=== PATIENT | female | born 1955 | race Caucasian/White ===

== ENCOUNTER → 2016-09-18 | Outpatient (CLI) | payer BC ==
[~2016-09-18] MED LIST: ALD2525 PO; APIX1TAB3 PO; BUDE180I INH; CHOL1000 PO; CITA10TA8 PO; CLX20 PO; COLE625T PO; DILT-115 PO; FEBU40TA PO; FLUT0.0529 NAE; FLUT0.15 NAE; LEVA45AE; LEVO88TA3 PO; LORA-741 PO; MONT1TAB3 PO; OXGN; PRAV20TA PO; PRLSR20 PO; PRVC20 PO; RIVA1TAB4 PO; SNG10 PO; SPIR50TA PO; SYN100 PO; VERA180C2 PO; VERA240C2 PO; VERA240T20 PO; VRPSR180 PO; XPNIN INH
--- NOTE | 2016-09-18 15:00 | MAMMOGRAPHY REPORT ---
BILATERAL DIGITAL DIAGNOSTIC MAMMOGRAM TOMOSYNTHESIS WITH CAD: 09/18/2016 CLINICAL HISTORY: 60-year-old woman presents for annual bilateral mammography as well as 1 year foll ow-up of probably benign cluster microcalcifications in the 12:00 left breast. History of previous benign stereotactic biopsy in the upper outer far posterior right breast. TECHNIQUE: Bilateral CC and MLO to the digital) images, spot magnification left CC and ML views were obtained. Current study was also evaluated with a Computer Aided Detection (CAD) system. COMPARISON: Comparison is made to exams dated: 03/17/2016 mammogram, 09/08/2015 mammogram, and 11/03/19 stereotactic biopsy - [facility]. BREAST COMPOSITION: The tissue of both breasts is heterogeneously dense, which may obscure small ma sses. FINDINGS: The bregma pattern is similar to prior exams. A stable dumbbell shaped metallic biopsy ma rker is seen in the far posterior superior right breast on the MLO view. There is a coarse heteroge neous clustered microcalcifications in the 12:00 right breast, that has coarsened compared to the exam confirming benignity. A 4 mm cluster of microcalcifications in the 12:00 left breast is sta ble for one year based on spot magnification views and most likely represents an additional degenera ting fibroadenoma. However, longer stability is needed and another 12 month follow-up exam includin g spot magnification views is recommended. No other new suspicious mass, architectural distortion o r cluster of microcalcifications is seen. IMPRESSION: ACR-BI-RADS CATEGORY 3: PROBABLY BENIGN Stable bilateral mammograms, including a 4 mm cluster of microcalcifications in the 12:00 left breas t, that most likely represent a degenerating fibroadenoma. Another 12 month follow-up bilateral antonietta mogram including left spot magnification views is recommended to ensure at least 2 years of stabilit y. These results and recommendations were discussed with the patient at the time of the exam. Approximately 10% of breast cancers are not detected with mammography. A negative mammographic repor t should not delay biopsy if a clinically suggestive mass is present. Jeannie Roman M.D. ay/:09/18/2016 08:42:44 [employer] Well Log[employer] Operator: Pricila Agrawal, [facility] letter sent: Follow Up Recommended 3 BI-RADS Code: ACR-BI-RADS Category 3: Probably Benign
== END | disposition home or self-care (01) ==
LOC: C.MAMM 07:59
PROVIDERS: ATTEND Internal Medicine
DX: R92.0 Mammographic microcalcification found on diagnostic imaging of breast (principal)

== ENCOUNTER → 2016-09-29 | Outpatient (CLI) | payer BC, OTHER ==
[2016-09-29 17:47] LABS: URINE APPEARANCE CLEAR (CLEAR); URINE BILIRUBIN NEG (NEG); URINE COLOR YELLOW; URINE NITRITE NEG (NEG); URINE PH 5.5 (4.5-7.5); URINE SPECIFIC GRAVITY 1.023 (1.000-1.030); UROBILINOGEN NEG (NEG)
[2016-09-29 17:49] LABS: MANUAL MICROSCOPIC REQUIRED? NO; REVIEW REQ? NO
[2016-09-29 18:22] LABS: BLOOD UREA NITROGEN 37 mg/dl (7-18); BUN/CREATININE RATIO 33.8 (10-20); CALCIUM 9.8 mg/dl (8.5-10.1); CARBON DIOXIDE 26 mmol/L (21-32); CHLORIDE 101 mmol/L (98-107); GLUCOSE 144 mg/dl (70-99); POTASSIUM 3.4 mmol/L (3.5-5.1); SODIUM 139 mmol/L (136-145)
[2016-09-30 07:11] LABS: ESTIMATED AVERAGE GLUCOSE 126 mg/dl; HA1C FLAG Normal (Normal)
== END | disposition home or self-care (01) ==
LOC: C.LABBFT 11:20
PROVIDERS: ATTEND Internal Medicine
DX: E87.6 Hypokalemia (principal); E03.9 Hypothyroidism, unspecified; N39.0 Urinary tract infection, site not specified

== ENCOUNTER 2017-03-08 16:28 | Inpatient (IN) | payer BC ==
[~2017-03-08] VITALS: Ht 167.6 cm; Wt 90.6 kg
[2017-03-08] VITALS (28 sets, daily range): BP systolic 132–160; BP diastolic 82–102; PULSE 90–130; TEMP 37; O2SAT 94–97; Ht 167.6 cm; Wt 90.6 kg
[~2017-03-08 16:28] MED LIST changes: -APIX1TAB3 PO; -CHOL1000 PO; -CITA10TA8 PO; -DILT-115 PO; -FEBU40TA PO; -FLUT0.15 NAE; -LEVA45AE; -LEVO88TA3 PO; -MONT1TAB3 PO; -PRAV20TA PO; -RIVA1TAB4 PO; -SPIR50TA PO; -VERA180C2 PO; -VERA240C2 PO; -VERA240T20 PO; -VRPSR180 PO
--- NOTE | 2017-03-08 17:02 | EMERGENCY ROOM VISIT NOTE ---
History Report prepared by Osmel: Aleksey Myers Under the Supervision of: Dr. Nestor Infante M.D. First contact with patient: 16:47 Chief Complaint: IRREGULAR HEARTBEAT Stated Complaint: IRREGULAR HEART BEAT, SOB- PHYSICIAN REFERRED History of Present Illness The patient is a 61 year old female who presents to the Emergency Room with complaints of an intermittent irregular heartbeat that started a couple months ago. She says that she has a history of multiple UTI's, and was seen at her family practice and was told that she had an irregular heartbeat. At that time, the patient says that she was just treated for her UTI. She says that she has not been feeling well for a couple months, and has been intermittently short of breath, dizzy, nauseous, and sweaty. The patient notes that she felt like she was having another UTI, so she had an appointment today at [facility], and was diagnosed with atrial fibrillation. She says that her blood pressure and pulse were elevated in the office. She notes that she was walking outside today, and could not handle the heat, as she was drenched in sweat, and could not recover even by going inside. The patient says that she has a history of asthma, and tried using her rescue inhaler a few times in the past couple months, which only made her heart beat faster. She denies any notable pain or swelling in her extremities. 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 She takes Verapamil. Source of History: patient, spouse/significant other Onset: A couple months ago Position: other (heart ) Quality: other (irregular heartbeat) Timing: intermittent Associated Symptoms: + diaphoresis, + SOB, + nausea Note: Associated symptoms: Dizziness. Denies any notable pain or swelling in extremities. Review of Systems See HPI for pertinent positives & negatives. A total of 10 systems reviewed and were otherwise negative. Past Medical & Surgical Medical Problems: (1) Asthma, Unspecified (2) Diab Anabelle Wo Compl, Type Ii Or Unspec Type, Not Uncntrld (3) Esophageal Reflux (4) Gout Nos (5) Hyperlipidemia Nec/Nos (6) Hypertension Nos (7) Hypothyroidism Nos Surgical Problems: (1) History of delivery Old medical records were reviewed. Nurse's notes were reviewed and I agree with. Family History Diabetes mellitus FH: heart disease FH: lung disease Hypertension Kidney disease Social History Smoking Status: Former Smoker Alcohol Use: occasionally Drug Use: none Marital Status: Occupation Status: employed Current/Historical Medications Scheduled Budesonide (Inhalation) (Pulmicort Flexhaler), 2 PUFFS INH BID Cholecalciferol (Vitamin D3), 1,000 UNITS PO BID Citalopram Hydrobromide (Celexa), 5 MG PO HS Colesevelam (Welchol), 1,875 MG PO BID Febuxostat (Uloric), 40 MG PO HS Fluticasone Propionate (Nasal) (Flonase Allergy Relief), 2 SPRAYS SUE BID Hctz/Spironolactone 25MG/25MG (Aldactazide 25MG/25MG), 1 TAB PO BID Home O2 Therapy (Oxygen), 2 LITERS NA HS Levothyroxine Sodium (Levothyroxine Sodium), 88 MCG PO DAILY Montelukast Sodium (Singulair), 10 MG PO HS Omeprazole (Prilosec), 20 MG PO QAM Pravastatin (Pravachol ), 10 MG PO HS Verapamil Hcl (Verapamil Hcl Er), 180 MG PO HS Scheduled PRN Lorazepam (Ativan), 0.5 MG PO HS PRN for anxiety Allergies Coded Allergies: Atenolol (Verified Allergy, Unknown, HAS ASTHMA, 03/08/17) Iodinated Diagnostic Agents (Verified Allergy, Unknown, RASH, HIVES, ) Metoprolol (Verified Allergy, Unknown, HAS ASTHMA, 03/08/17) Sulfa Antibiotics (Verified Allergy, Unknown, ., 03/08/17) Uncoded Allergies: MOST ANITBOTICS (Adverse Reaction, Unknown, UNKNOWN, 01/02/14) Physical Exam Vital Signs Date Time Temp Pulse Resp B/P (MAP) Pulse Ox O2 Delivery O2 Flow Rate FiO2 03/08/17 20:38 104 21 03/08/17 20:29 132/98 03/08/17 20:08 98 19 03/08/17 20:03 118 22 132/98 03/08/17 19:33 117 27 03/08/17 19:03 120 13 03/08/17 18:59 154/102 03/08/17 18:59 114 18 154/102 97 Room Air 03/08/17 18:33 120 22 03/08/17 18:03 129 15 03/08/17 17:28 120 19 03/08/17 17:03 96 Room Air 03/08/17 16:58 117 23 03/08/17 16:49 121 03/08/17 16:31 36.6 134 18 159/101 95 Room Air Physical Exam General: Well developed well nourished non ill appearing older female who is mildly anxious and intermittently teary eyed, breathing comfortably on room air. Normal speech HEENT: Normal cephalic atraumatic. Pupils are equal round and reactive to light. Extraocular movements are intact. Oropharynx is pink with moist mucous membranes. No swelling of the mouth lips or tongue. Neck: Supple with a midline trachea. No meningeal signs or stiffness, no JVD or bruits. No Stridor. Chest: Clear to auscultation bilaterally. No wheezes or rhonchi. No increased work of breathing. Heart: Irregularly irregular, with atrial fibrillation on the monitor. Abdomen: Soft nontender, nondistended without rebound guarding or rigidity. Extremities: No cyanosis clubbing or edema. No calf tenderness or assymetry Spine/Back. Non tender to palpation. No CVA tenderness Skin: Good turgor without rashes. Neurologic exam: Cranial nerves two through 12 are intact. Motor and sensation are intact and symmetrical throughout. Medical Decision & Procedures ER Provider Diagnostic Interpretation: X-ray results as stated below per interpretation by me and the radiologist: SINGLE VIEW CHEST CLINICAL HISTORY: Atypical chest pain. FINDINGS: An AP, portable, upright chest radiograph is compared to study dated 01/02/2014 and correlated with chest CT dated 01/03/2014. The examination is degraded by portable technique and patient rotation. The heart is top normal for projection. There is mild atherosclerotic calcification of the thoracic aorta. The lungs and pleural spaces are clear. No pneumothorax is seen. The skeletal structures are osteopenic. The bony thorax is grossly intact. IMPRESSION: No acute cardiopulmonary abnormality. Electronically signed by: Roger Rogers M.D. 03/08/2017 6:18 PM Dictated Date/Time: 03/08/2017 6:00 PM Laboratory Results 03/08/17 18:00 Red Blood Count 5.26, Mean Corpuscular Volume 89.0, Mean Corpuscular Hemoglobin 29.8, Mean Corpuscular Hemoglobin Concent 33.5, Mean Platelet Volume 11.3, Neutrophils (%) (Auto) 64.8, Lymphocytes (%) (Auto) 23.8, Monocytes (%) (Auto) 8.0, Eosinophils (%) (Auto) 2.5, Basophils (%) (Auto) 0.6, Neutrophils # (Auto) 5.81, Lymphocytes # (Auto) 2.13, Monocytes # (Auto) 0.72, Eosinophils # (Auto) 0.22, Basophils # (Auto) 0.05 03/08/17 18:00 Test 03/08/17 18:00 03/08/17 18:05 White Blood Count 8.96 K/uL (4.8-10.8) Red Blood Count 5.26 M/uL (4.2-5.4) Hemoglobin 15.7 g/dL (12.0-16.0) Hematocrit 46.8 % (37-47) Mean Corpuscular Volume 89.0 fL (80-100) Mean Corpuscular Hemoglobin 29.8 pg (25-34) Mean Corpuscular Hemoglobin Concent 33.5 g/dl (32-36) Platelet Count 279 K/uL (130-400) Mean Platelet Volume 11.3 fL (7.4-10.4) Neutrophils (%) (Auto) 64.8 % Lymphocytes (%) (Auto) 23.8 % Monocytes (%) (Auto) 8.0 % Eosinophils (%) (Auto) 2.5 % Basophils (%) (Auto) 0.6 % Neutrophils # (Auto) 5.81 K/uL (1.4-6.5) Lymphocytes # (Auto) 2.13 K/uL (1.2-3.4) Monocytes # (Auto) 0.72 K/uL (0.11-0.59) Eosinophils # (Auto) 0.22 K/uL (0-0.5) Basophils # (Auto) 0.05 K/uL (0-0.2) RDW Standard Deviation 42.6 fL (36.4-46.3) RDW Coefficient of Variation 13.1 % (11.5-14.5) Immature Granulocyte % (Auto) 0.3 % Immature Granulocyte # (Auto) 0.03 K/uL (0.00-0.02) Prothrombin Time 10.7 SECONDS (9.0-12.0) Prothromb Time International Ratio 1.0 (0.9-1.1) Activated Partial Thromboplast Time 25.8 SECONDS (21.0-31.0) Partial Thromboplastin Ratio 1.0 Anion Gap 9.0 mmol/L (3-11) Est Creatinine Clear Calc Drug Dose 60.8 ml/min Estimated GFR () 62.8 Estimated GFR (Non- 54.1 BUN/Creatinine Ratio 22.2 (10-20) Calcium Level 10.0 mg/dl (8.5-10.1) Magnesium Level 1.8 mg/dl (1.8-2.4) Total Bilirubin 0.4 mg/dl (0.2-1) Direct Bilirubin < 0.1 mg/dl (0-0.2) Aspartate Amino Transf (AST/SGOT) 16 U/L (15-37) Alanine Aminotransferase (ALT/SGPT) 34 U/L (12-78) Alkaline Phosphatase 76 U/L (45-117) Total Creatine Kinase 42 U/L (26-192) Creatine Kinase MB 0.6 ng/ml (0.5-3.6) Creatine Kinase MB Ratio 1.4 (0-3.0) Total Protein 7.1 gm/dl (6.4-8.2) Albumin 3.7 gm/dl (3.4-5.0) Lipase 82 U/L (73-393) Thyroid Stimulating Hormone (TSH) 2.760 uIu/ml (0.300-4.500) Hepatitis C Antibody Screen NEG (NEG) Bedside D-Dimer 207 ng/mlFEU (0-450) Bedside Troponin I < 0.030 ng/ml (0-0.045) QU-Frs-U-Type Natriuretic Peptide 281 pg/ml (0-900) Laboratory studies as stated above per my review. Medications Administered Medications (Trade) Dose Ordered Sig/Keo Route Start Time Stop Time Status Last Admin Dose Admin Sodium Chloride 1,000 ml @ 999 mls/hr Q1H1M STAT IV 03/08/17 17:42 03/08/17 18:42 DC 03/08/17 18:08 999 MLS/HR Sodium Chloride 1,000 ml @ 150 mls/hr Q6H40M ONCE IV 03/08/17 17:42 03/08/17 21:55 DC 03/08/17 18:08 150 MLS/HR Magnesium Sulfate (Magnesium Sulfate) 1 gm STK-MED ONCE .ROUTE 03/08/17 19:30 03/08/17 19:31 DC 03/08/17 19:36 1 GM Potassium Chloride (Klor-Con M10) 40 meq STK-MED ONCE .ROUTE 03/08/17 19:30 03/08/17 19:31 DC 03/08/17 19:35 40 MEQ ECG Indication: other (irregular heartbeat) Rate (beats per minute): 120 Rhythm: atrial fibrillation Findings: PVC, other (nonspecific T wave abnormalities, poor baseline) Comparison ECG Date: compared to Jan 03 2014, atrial fibrillation has replaced sinus bradycardia ED Course 1649: Past medical records reviewed. The patient was evaluated in room A3, and a complete history and physical examination were performed. 1741: Ordered NSS 1000 ml @ 150 mls/hr IV, NSS 1000 ml @ 999 mls/hr IV. 1819: I reevaluated the patient and she is resting comfortably. Her heart rate is 100. 1902: I reevaluated the patient and she is resting. The patient verbally expressed understanding and agreement with the treatment plan. The patient will be evaluated for further treatment. 1904: I discussed the patient with Dr. Tolbert - [facility] hospitalist - he will evaluate the patient for further treatment. Medical Decision Differentials include, but are not limited to; atrial fibrillation, thyroid disease, CHF, cardiac disease, electrolyte or metabolic abnormality. Medication Reconciliation: I attest that I have personally reviewed the patient' s current medication list. Blood pressure Screening: Patient was found to have an elevated blood pressure and was referred to their primary doctor for recheck and further treatment. Room A3 she was sent over from her doctor's office after being found have new- onset A. fib. She's not felt well for quite some time several months now. She' s had a fast heart rate intermittently irregular irregular. I am unsure how long that she has actually been in A. fib. Her heart rate was rapid but went with it rest it would be about 100. She does have multiple medication sensitivities and in particular cannot take beta blockers due to her asthma, she 's had significant problems with this in the past. She also already on verapamil. She's had no chest pain. She's felt tired at present. IV access established and she was with hydrated with IV normal saline. EKG, chest x-ray, and multiple blood tests was obtained. EKG shows atrial fibrillation with a mildly rapid rate and no definite ischemic changes. Chest x-ray does not suggest congestive heart failure, pneumonia, or pneumothorax. She has no acute electrolyte or metabolic abnormalities. Thyroid was within normal limits. She does need to be admitted to have further treatment and evaluation of her new onset A. fib she may need further rate control. I did consult the [facility] hospitalist to see her in the ER. Consults Time Called: 1899 Consulting Physician: Dr. Didi COATS hospitalist Returned Call: 1904 (in person) I discussed the patient with Dr. Didi COATS hospitalist - he will evaluate the patient for further treatment. Impression Primary Impression: New onset a-fib Additional Impression: Atrial fibrillation with RVR Scribe Attestation The scribe's documentation has been prepared under my direction and personally reviewed by me in its entirety. I confirm that the note above accurately reflects all work, treatment, procedures, and medical decision making performed by me. Departure Information Dispostion Being Evaluated By Hospitalist Referrals Jim Jackman M.D. (PCP) Patient Instructions My [facility] Health Problem Qualifiers
[2017-03-08] MEDS ORDERED: CITA10TA8 PO (17:06)
[2017-03-08] MEDS ORDERED: FLUT0.15 NAE (17:08)
[2017-03-08] MEDS ORDERED: SPIR50TA PO (17:09)
[2017-03-08] MEDS ORDERED: LEVO88TA3 PO (17:10)
[2017-03-08] MEDS ORDERED: MONT1TAB3 PO (17:12)
[2017-03-08] MEDS ORDERED: PRAV20TA PO (17:13)
[2017-03-08] MEDS ORDERED: FEBU40TA PO (17:14)
[2017-03-08] MEDS ORDERED: CHOL1000 PO (17:15)
[2017-03-08] MEDS ORDERED: VERA180C2 PO (17:17)
[2017-03-08] MEDS ORDERED: SODIUM CHLORIDE 0.9% 1000ML 1,000 ML IV STA (17:42)
[2017-03-08] MEDS ORDERED: SODIUM CHLORIDE 0.9% 1000ML 1,000 ML IV ONE (17:42)
--- NOTE | 2017-03-08 18:19 | DIAGNOSTIC IMAGING REPORT ---
SINGLE VIEW CHEST CLINICAL HISTORY: Atypical chest pain. FINDINGS: An AP, portable, upright chest radiograph is compared to study dated 01/02/2014 and correlated with chest CT dated 01/03/2014. The examination is degraded by portable technique and patient rotation. The heart is top normal for projection. There is mild atherosclerotic calcification of the thoracic aorta. The lungs and pleural spaces are clear. No pneumothorax is seen. The skeletal structures are osteopenic. The bony thorax is grossly intact. IMPRESSION: No acute cardiopulmonary abnormality. Electronically signed by: Roger Rogers M.D. 03/08/2017 6:18 PM Dictated Date/Time: 03/08/2017 6:00 PM
[2017-03-08 18:25] LABS: BASO % 0.6 %; BASO ABS # 0.05 K/uL (0-0.2); COMPLETE YES; EOS % 2.5 %; HEMATOCRIT 46.8 % (37-47); IG% 0.3 %; LYMPH % 23.8 %; LYMPH ABS # 2.13 K/uL (1.2-3.4); MEAN CORPUSCULAR HEMOGLOBIN 29.8 pg (25-34); MEAN CORPUSCULAR HGB CONC 33.5 g/dl (32-36); MEAN PLATELET VOLUME 11.3 fL (7.4-10.4); NEUT % 64.8 %; PLATELET COUNT 279 K/uL (130-400); RED BLOOD COUNT 5.26 M/uL (4.2-5.4); WHITE BLOOD COUNT 8.96 K/uL (4.8-10.8)
[2017-03-08 18:27] LABS: POINT OF CARE PRO-BNP 281 pg/ml (0-900); POINT OF CARE TROPONIN I < 0.030 ng/ml (0-0.045)
[2017-03-08 18:44] LABS: PROTHROMBIN TIME (PATIENT) 10.7 SECONDS (9.0-12.0)
[2017-03-08 18:45] LABS: BLOOD UREA NITROGEN 24 mg/dl (7-18); BUN/CREATININE RATIO 22.2 (10-20); CARBON DIOXIDE 28 mmol/L (21-32); CHLORIDE 101 mmol/L (98-107); GLUCOSE 94 mg/dl (70-99); MAGNESIUM 1.8 mg/dl (1.8-2.4); POTASSIUM 3.4 mmol/L (3.5-5.1); SODIUM 138 mmol/L (136-145)
[2017-03-08 18:54] LABS: ALKALINE PHOSPHATASE 76 U/L (45-117); ALT/SGPT 34 U/L (12-78); AST/SGOT 16 U/L (15-37); CKMB/CK RATIO 1.4 (0-3.0)
[2017-03-08] MEDS ORDERED: POTASSIUM CHLORIDE 10 MEQ TABCR PO STA (19:02)
[2017-03-08] MEDS ORDERED: MAGNESIUM SULFATE 1GM / D5W 1 GM in PREMIXED IN D5W 100 ML IV STA (19:02)
[2017-03-08] MEDS ORDERED: POTASSIUM CHLORIDE 10 MEQ TABCR ONE (19:30)
[2017-03-08] MEDS ORDERED: MAGNESIUM SULFATE 1GM / D5W 1 GM BAG ONE (19:30)
[2017-03-08] MEDS ORDERED: ACETAMINOPHEN 325 MG TAB PO PRN (20:45)
[2017-03-08] MEDS ORDERED: POLYETHYLENE (MIRALAX) 17 GM PACK PO PRN (20:45)
[2017-03-08] MEDS ORDERED: ONDANSETRON INJ 2 MG/ML 2 ML VIAL IV PRN (20:45)
[2017-03-08] MEDS ORDERED: LORAZEPAM 0.5 MG TAB PO PRN (20:45)
[2017-03-08] MEDS ORDERED: ALUMINUM/MAGNESIUM/SIMETH (MAALOX MAX) 30 ML UDC PO PRN (20:45)
--- NOTE | 2017-03-08 20:47 | History and Physical ---
History & Physical Date & Time of Service: Mar 08, 2017 at 20:47 Chief Complaint: Irregular Heart Beat, Sob- Physician Referred Primary Care Physician: Jim Jackman M.D. History of Present Illness 61-year-old female with past medical history of asthma, diabetes, hypertension, hyperlipidemia, hypothyroidism, Presented to the ER with complaints of palpitations. The patient has a urinary symptoms and was seen at the PCPs office and found to have elevated heart rate and blood pressure. She was also found to have an irregular heartbeat. The patient stated that she had been having a sensation of irregular heartbeat for a few months. Denies any chest pain, shortness of breath but had episodes of lightheadedness or dizziness. Denies any pain or swelling in her lower extremities. She has a history of asthma and hypertension and is currently on verapamil and Aldactazide Past Medical/Surgical History Surgical Problems: (1) History of delivery Status: Resolved Family History Diabetes mellitus FH: heart disease FH: lung disease Hypertension Kidney disease Social History Smoking Status: Former Smoker Drug Use: none Marital Status: Housing status: lives with family Occupational Status: employed Immunizations History of Influenza Vaccine: Yes History of Tetanus Vaccine?: Yes Tetanus Immunization Date: Oct 30, 2007 History of Pneumococcal: Yes History of Hepatitis B Vaccine: No Multi-Drug Resistant Organisms History of MDRO: No Allergies Coded Allergies: Atenolol (Verified Allergy, Unknown, HAS ASTHMA, 03/08/17) Iodinated Diagnostic Agents (Verified Allergy, Unknown, RASH, HIVES, ) Metoprolol (Verified Allergy, Unknown, HAS ASTHMA, 03/08/17) Sulfa Antibiotics (Verified Allergy, Unknown, ., 03/08/17) Uncoded Allergies: MOST ANITBOTICS (Adverse Reaction, Unknown, UNKNOWN, 01/02/14) Home Medications Scheduled Budesonide (Inhalation) (Pulmicort Flexhaler), 2 PUFFS INH BID Cholecalciferol (Vitamin D3), 1,000 UNITS PO BID Citalopram Hydrobromide (Celexa), 5 MG PO HS Colesevelam (Welchol), 1,875 MG PO BID Febuxostat (Uloric), 40 MG PO HS Fluticasone Propionate (Nasal) (Flonase Allergy Relief), 2 SPRAYS SUE BID Hctz/Spironolactone 25MG/25MG (Aldactazide 25MG/25MG), 1 TAB PO BID Home O2 Therapy (Oxygen), 2 LITERS NA HS Levothyroxine Sodium (Levothyroxine Sodium), 88 MCG PO DAILY Montelukast Sodium (Singulair), 10 MG PO HS Omeprazole (Prilosec), 20 MG PO QAM Pravastatin (Pravachol ), 10 MG PO HS Rivaroxaban (Xarelto), 20 MG PO DAILY Verapamil Sust Rel (Calan Sr Ext Rel), 240 MG PO OD Scheduled PRN Lorazepam (Ativan), 0.5 MG PO HS PRN for anxiety Review of Systems Constitutional: No fever, No chills Eyes: No worsening of vision ENT: No hearing loss Respiratory: No cough, No sputum, No shortness of breath Cardiovascular: + palpitations, + problem reported (lightheadedness), No chest pain Abdomen: No pain, No nausea, No vomiting Musculoskeletal: No joint pain Genitourinary - Female: + dysuria Neurologic: No memory loss, No paralysis Psychiatric: No depression symptoms Endocrine: No fatigue Hematologic / Lymphatic: No abnormal bleeding/bruising Integumentary: No rash Physical Exam Vital Signs Date Time Temp Pulse Resp B/P (MAP) Pulse Ox O2 Delivery O2 Flow Rate FiO2 03/08/17 20:03 118 22 132/98 03/08/17 19:33 117 27 03/08/17 19:03 120 13 03/08/17 18:59 154/102 03/08/17 18:59 114 18 154/102 97 Room Air 03/08/17 18:33 120 22 03/08/17 18:03 129 15 03/08/17 17:28 120 19 03/08/17 17:03 96 Room Air 03/08/17 16:58 117 23 03/08/17 16:49 121 03/08/17 16:31 36.6 134 18 159/101 95 Room Air General Appearance: WD/WN, no apparent distress Eyes: normal inspection ENT: hearing grossly normal Neck: supple Respiratory/Chest: chest non-tender, lungs clear, normal breath sounds, no respiratory distress Cardiovascular: + irregularly irregular Abdomen/GI: normal bowel sounds, non tender, soft Extremities/Musculoskelatal: no calf tenderness, no pedal edema Neurologic/Psych: alert, normal mood/affect, oriented x 3 Diagnostics Laboratory Results Results Past 24 Hours Test 03/08/17 17:42 03/08/17 18:00 03/08/17 18:05 Range/Units Creatine Kinase MB Ratio 1.4 0-3.0 White Blood Count 8.96 4.8-10.8 K/uL Red Blood Count 5.26 4.2-5.4 M/uL Hemoglobin 15.7 12.0-16.0 g/dL Hematocrit 46.8 37-47 % Mean Corpuscular Volume 89.0 80-100 fL Mean Corpuscular Hemoglobin 29.8 25-34 pg Mean Corpuscular Hemoglobin Concent 33.5 32-36 g/dl Platelet Count 279 130-400 K/uL Mean Platelet Volume 11.3 7.4-10.4 fL Neutrophils (%) (Auto) 64.8 % Lymphocytes (%) (Auto) 23.8 % Monocytes (%) (Auto) 8.0 % Eosinophils (%) (Auto) 2.5 % Basophils (%) (Auto) 0.6 % Neutrophils # (Auto) 5.81 1.4-6.5 K/uL Lymphocytes # (Auto) 2.13 1.2-3.4 K/uL Monocytes # (Auto) 0.72 0.11-0.59 K/uL Eosinophils # (Auto) 0.22 0-0.5 K/uL Basophils # (Auto) 0.05 0-0.2 K/uL RDW Standard Deviation 42.6 36.4-46.3 fL RDW Coefficient of Variation 13.1 11.5-14.5 % Immature Granulocyte % (Auto) 0.3 % Immature Granulocyte # (Auto) 0.03 0.00-0.02 K/uL Prothrombin Time 10.7 9.0-12.0 SECONDS Prothromb Time International Ratio 1.0 0.9-1.1 Activated Partial Thromboplast Time 25.8 21.0-31.0 SECONDS Partial Thromboplastin Ratio 1.0 Sodium Level 138 136-145 mmol/L Potassium Level 3.4 3.5-5.1 mmol/L Chloride Level 101 98-107 mmol/L Carbon Dioxide Level 28 21-32 mmol/L Anion Gap 9.0 3-11 mmol/L Blood Urea Nitrogen 24 7-18 mg/dl Creatinine 1.10 0.60-1.20 mg/dl Est Creatinine Clear Calc Drug Dose 60.8 ml/min Estimated GFR () 62.8 Estimated GFR (Non- 54.1 BUN/Creatinine Ratio 22.2 10-20 Random Glucose 94 70-99 mg/dl Calcium Level 10.0 8.5-10.1 mg/dl Magnesium Level 1.8 1.8-2.4 mg/dl Total Bilirubin 0.4 0.2-1 mg/dl Direct Bilirubin < 0.1 0-0.2 mg/dl Aspartate Amino Transf (AST/SGOT) 16 15-37 U/L Alanine Aminotransferase (ALT/SGPT) 34 12-78 U/L Alkaline Phosphatase 76 45-117 U/L Total Creatine Kinase 42 26-192 U/L Creatine Kinase MB 0.6 0.5-3.6 ng/ml Total Protein 7.1 6.4-8.2 gm/dl Albumin 3.7 3.4-5.0 gm/dl Lipase 82 73-393 U/L Thyroid Stimulating Hormone (TSH) 2.760 0.300-4.500 uIu/ml Bedside D-Dimer 207 0-450 ng/mlFEU Bedside Troponin I < 0.030 0-0.045 ng/ml BY-Noo-Z-Type Natriuretic Peptide 281 0-900 pg/ml Diagnostic Radiology SINGLE VIEW CHEST CLINICAL HISTORY: Atypical chest pain. FINDINGS: An AP, portable, upright chest radiograph is compared to study dated 01/02/2014 and correlated with chest CT dated 01/03/2014. The examination is degraded by portable technique and patient rotation. The heart is top normal for projection. There is mild atherosclerotic calcification of the thoracic aorta. The lungs and pleural spaces are clear. No pneumothorax is seen. The skeletal structures are osteopenic. The bony thorax is grossly intact. IMPRESSION: No acute cardiopulmonary abnormality. Electronically signed by: Roger Rogers M.D. 03/08/2017 6:18 PM Dictated Date/Time: 03/08/2017 6:00 PM EKG Atrial fibrillation with rapid ventricular response with premature ventricular or aberrantly conducted complexes Cannot rule out Anterior infarct , age undetermined Nonspecific T wave abnormality Prolonged QT Abnormal ECG When compared with ECG of 03-JAN-2014 07:40, Atrial fibrillation has replaced Sinus rhythm Premature ventricular complexes are now Present Impression Assessment and Plan 61-year-old female with past medical history of asthma, diabetes, hypertension, hyperlipidemia, hypothyroidism, Presented to the ER with complaints of palpitations. Atrial Fibrillation: - EKG: Atrial fibrillation with rapid ventricular response with premature ventricular or aberrantly conducted complexes Cannot rule out Anterior infarct , age undetermined Nonspecific T wave abnormality - TSH within normal range - K at 3.4, repleted - Monitor electrolytes - Patient cannot tolerate metoprolol - Increased dosage of verapamil to 180 mg twice a day from 180 mg daily - [id number] vasc score of 3 , started on Lovenox for anticoagulation for now. Will need discussion with primary team/cardiology regarding oral anticoagulation Asthma: Stable - Continue Pulmicort HTN - Continue verapamil, Aldactazide Diabetes: - Diet controlled Hypothyroidism: - Continue Synthroid Gout: -Continue to febuxostat Full code DVT prophylaxis: Lovenox Disposition: Admitted to telemetry Attending Addendum: I physically seen and examined this patient, have supervised the medical residents activities, and agree with the H&P as noted above with the following exceptions: NONE The patient is awake, well-developed and adequately nourished, alert and oriented 3, normocephalic and atraumatic, lying in bed and in no acute distress. HEENT--PERRL, EOMI, mucous membranes and oropharynx normal. Neck--supple, no JVD or bruits, thyroid normal, trachea midline, no adenopathy. Heart--no irregularly irregular and tachycardic, no murmurs, rubs or gallops. Lungs--clear bilaterally, but diminished throughout, no respiratory distress, no accessory muscle use. Abdomen--normal bowel sounds and soft, nontender and nondistended, no hernias or masses, no organomegaly. Extremities--no cyanosis, clubbing or edema. There are good distal pulses b/l. Dermatologic--normal skin turgor, normal color, warm and dry, no abnormal lymph nodes, no rash. Neurologic--cranial nerves II through XII grossly intact. Rheumatologic--normal range of motion, nontender, muscles and joints. Psychiatric--normal affect. Assessment and Plan: 1. Atrial fibrillation with rapid ventricular response--The patient will be admitted to telemetry for serial cardiac enzymes, cardiac rhythm monitoring and a 2-D echocardiogram with Dopplers. Hypokalemia with potassium at 3.4, replete with 40 mEq orally now, and add a magnesium level to current ED labs. Follow serial BMP and magnesium levels. Hypokalemia is likely secondary to Aldactazide use. Presently on verapamil SR 180 mg by mouth every morning, well tolerated, and intolerant of beta blockers, will therefore increase Verapamil SR 180 mg by mouth twice a day. [id number] score of 3, and therefore being started on Lovenox 1 mg /kilogram subcutaneous every 12 hours for therapeutic anticoagulation. Consult cardiology. Level of Care Telemetry Resuscitation Status FULL RESUSCITATION VTE Prophylaxis VTE Risk Assessment Done? Y/N: Yes Risk Level: Moderate Given or contraindicated: Enoxaparin (Lovenox)SQ Resident Tracking Resident Involvement: Resident Care Provided Care Provided: Adult Hospital Medicine
[2017-03-08] MEDS ORDERED: FEBUXOSTAT 40 MG TAB PO SCH (21:00)
[2017-03-08] MEDS ORDERED: MONTELUKAST SOD 10 MG TAB PO SCH (21:00)
[2017-03-08] MEDS ORDERED: CITALOPRAM 20 MG TAB PO SCH (21:00)
[2017-03-08] MEDS ORDERED: PRAVASTATIN SOD 20 MG TAB PO SCH (21:00)
[2017-03-09] VITALS (17 sets, daily range): BP systolic 99–120; BP diastolic 61–83; PULSE 83–106; TEMP 36.7–37; O2SAT 93–96
[2017-03-09] MEDS ORDERED: LEVOTHYROXINE 88 MCG TAB PO SCH (06:00)
[2017-03-09 06:49] LABS: BASO % 0.4 %; BASO ABS # 0.03 K/uL (0-0.2); COMPLETE YES; EOS % 3.2 %; HEMATOCRIT 43.2 % (37-47); IG% 0.3 %; LYMPH % 29.6 %; LYMPH ABS # 2.21 K/uL (1.2-3.4); MEAN CELL VOLUME 88.9 fL (80-100); MEAN CORPUSCULAR HEMOGLOBIN 29.2 pg (25-34); MEAN CORPUSCULAR HGB CONC 32.9 g/dl (32-36); MEAN PLATELET VOLUME 10.8 fL (7.4-10.4); MONO % 8.4 %; NEUT % 58.1 %; PLATELET COUNT 257 K/uL (130-400); RED BLOOD COUNT 4.86 M/uL (4.2-5.4); WHITE BLOOD COUNT 7.47 K/uL (4.8-10.8)
[2017-03-09 06:58] LABS: INR 1.1 (0.9-1.1); PARTIAL THROMBOPLASTIN RATIO 1.2; PROTHROMBIN TIME (PATIENT) 11.3 SECONDS (9.0-12.0)
[2017-03-09] MEDS: BUDESONIDE 90 MCG INH INH SCH ×2 (07:12→08:12)
[2017-03-09] MEDS: FLUTICASONE PROPIONATE NA SPR 16 GM BTL NAE SCH ×2 (07:12→08:12)
[2017-03-09] MEDS: SPIRONOLACTONE/HCTZ 25-25 PO SCH ×2 (07:12→08:13)
[2017-03-09] MEDS: VERAPAMIL HCL 180 MG TABCR PO SCH ×2 (07:12→08:13)
[2017-03-09] MEDS: COLESEVELAM 625 MG TAB PO SCH ×2 (07:13→08:13)
[2017-03-09] MEDS: NSS + 20MEQ KCL 1000ML 1,000 ML IV SCH ×2 (07:13→08:11)
[2017-03-09 07:17] LABS: BUN/CREATININE RATIO 18.7 (10-20); CREATININE 0.91 mg/dl (0.60-1.20); MAGNESIUM 1.9 mg/dl (1.8-2.4); POTASSIUM 3.8 mmol/L (3.5-5.1)
[2017-03-09] MEDS ORDERED: ACETAMINOPHEN 500 MG TAB PO STA (08:53)
[2017-03-09] MEDS ORDERED: ENOXAPARIN 1.5 MG/KG SQ SCH (09:00)
[2017-03-09] MEDS ORDERED: ENOXAPARIN 150 MG/1ML SYR SQ SCH (09:00)
[2017-03-09] MEDS ORDERED: PANTOprazole SOD 40 MG TAB PO SCH (09:00)
--- NOTE | 2017-03-09 10:40 | ECHOCARDIOGRAM REPORT ---
*NOTICE TO RECEIVING DEMOCRAT AGENCY This information is strictly Confidential and protected under [place] law. [place] law prohibits you from making any further disclosure of this information unless further disclosure is expressly permitted by the written consent of the person to whom it pertains or is authorized by law. A general authorization for the release of medical or other information is not sufficient for this purpose. Hospital accepts no responsibility if the information is made available to any other person, INCLUDING THE PATIENT. Interpretation Summary * Name: JOHNSON CISSE Study Date: 03/09/2017 06:51 AM BP: 101/65 mmHg * Patient Location: [facility] HR: 98 * : 1955 (M/d/yyyy) Gender: Female Height: 66 in * Age: 61 yrs Ethnicity: CA Weight: 199 lb * Ordering Physician: Divina Lemons * Referring Physician: Nena Foster * Performed By: Sanford Walker RCS * * Reason For Study: A-Fib * BSA: 2.0 m2 * -- Conclusions -- * 1. Borderline dilated LV, with borderline concentric LVH. * 2. Normal LV systolic function. LVEF 50-55%. No regional wall motion abnormalities. * 3. Normal RV size and function. * 4. Mild left atrial enlargement. * 5. No significant valvular pathology. * 6. Compared with prior study on 01/03/2014: Atrial fibrillation is new. Procedure Details * Left Ventricle The left ventricle is borderline dilated. There is borderline concentric left ventricular hypertrophy. Ejection Fraction = 50-55%. No regional wall motion abnormalities noted. * Right Ventricle The right ventricle is grossly normal size. The right ventricular systolic function is normal as assessed by tricuspid annular plane systolic excursion (TAPSE) (normal >1.5 cm). * Atria The left atrium is mildly dilated. Right atrial size is normal. No ASD detected; PFO is not assessed. * Mitral Valve The mitral valve is grossly normal. There is no mitral valve stenosis. There is trace mitral regurgitation. * Tricuspid Valve The tricuspid valve is not well visualized. There is trace tricuspid regurgitation. * Aortic Valve The aortic valve opens well. The aortic valve is trileaflet. No hemodynamically significant valvular aortic stenosis. There is no significant aortic regurgitation. * Pulmonic Valve The pulmonary valve is inadequately visualized, but the Doppler data is adequate for interpretation. There is no pulmonic valvular stenosis. There is no pulmonic valvular regurgitation. * Great Vessels The aortic root and proximal ascending aorta are normal sized. No Doppler or imaging evidence of an aortic coarctation. * Pericardium/Pleural There is no pericardial effusion. * * MMode 2D Measurements and Calculations * IVSd 1.1 cm * * LVIDd 5.5 cm * LVIDs 3.9 cm * LVPWd 1.1 cm * * IVS/LVPW 0.94 * FS 30.4 % * EDV(Teich) 149.8 ml * ESV(Teich) 64.0 ml * EF(Teich) 57.3 % * * EDV(cubed) 169.9 ml * ESV(cubed) 57.1 ml * EF(cubed) 66.4 % * * LV mass(C)d 242.7 grams * LV mass(C)dI 121.6 grams/m\S\2 * * SV(Teich) 85.8 ml * SI(Teich) 43.0 ml/m\S\2 * SV(cubed) 112.7 ml * SI(cubed) 56.5 ml/m\S\2 * * Ao root diam 3.3 cm * Ao root area 8.8 cm\S\2 * * LVOT diam 2.3 cm * LVOT area 4.3 cm\S\2 * * LVAd ap4 25.1 cm\S\2 * LVLd ap4 7.5 cm * EDV(MOD-sp4) 68.9 ml * EDV(sp4-el) 71.2 ml * LVAs ap4 16.2 cm\S\2 * LVLs ap4 6.3 cm * ESV(MOD-sp4) 36.6 ml * ESV(sp4-el) 35.7 ml * EF(MOD-sp4) 46.8 % * EF(sp4-el) 49.8 % * * LVAd ap2 23.5 cm\S\2 * LVLd ap2 7.3 cm * EDV(MOD-sp2) 64.0 ml * EDV(sp2-el) 64.2 ml * LVAs ap2 16.3 cm\S\2 * LVLs ap2 6.9 cm * ESV(MOD-sp2) 32.8 ml * ESV(sp2-el) 32.5 ml * EF(MOD-sp2) 48.8 % * EF(sp2-el) 49.4 % * * LVLd %diff -3.01 % * EDV(MOD-bp) 68.8 ml * LVLs %diff 9.9 % * ESV(MOD-bp) 36.0 ml * EF(MOD-bp) 47.7 % * * SV(MOD-sp4) 32.2 ml * SI(MOD-sp4) 16.2 ml/m\S\2 * * SV(MOD-sp2) 31.2 ml * SI(MOD-sp2) 15.6 ml/m\S\2 * * SV(MOD-bp) 32.8 ml * SI(MOD-bp) 16.4 ml/m\S\2 * * SV(sp4-el) 35.5 ml * SI(sp4-el) 17.8 ml/m\S\2 * * SV(sp2-el) 31.7 ml * SI(sp2-el) 15.9 ml/m\S\2 * * * Doppler Measurements and Calculations * Ao V2 max 90.2 cm/sec * Ao max PG 3.3 mmHg * Ao max PG (full) 1.8 mmHg * LUIS(V,A) 2.9 cm\S\2 * LUIS(V,D) 2.9 cm\S\2 * * LV V1 max PG 1.5 mmHg * * LV V1 max 61.1 cm/sec * * TR max abbie 215.0 cm/sec * *
[2017-03-09] MEDS ORDERED: VRPSR180 PO (13:21)
[2017-03-09] MEDS ORDERED: DILT-115 PO (13:21)
[2017-03-09] MEDS ORDERED: RIVA1TAB4 PO (13:21)
--- NOTE | 2017-03-09 13:37 | Discharge Instructions ---
Discharge Instructions Date of Service Mar 09, 2017. Admission Reason for Admission: Atrial Fibrillation With Rvr Discharge Discharge Diagnosis / Problem: Atrial Fibrillation Discharge Goals Goal(s): Improve disease control Activity Recommendations Activity Limitations: per Instructions/Follow-up section . Instructions / Follow-Up Instructions / Follow-Up During this visit you were diagnosed with and treated for atrial fibrillation. We have changed a few of your medications to control the heart rate. We have increased your verapamil dose to 240mg, once daily. As we discussed with you during your visit, because of the nature of atrial fibrillation, you are at a higher risk of stroke. Because of this, we are putting you on a newer blood thinner, called Xarelto. Take this once daily. After about 3 weeks of being on these new medications, you are scheduled for a visit with the cardiology team. They will reassess your symptoms and determine if any doses need to be changed. During the next three weeks, continue to assess your symptoms. When you feel symptomatic, count your heart rate over 60 seconds. Make note of any periods when you are symptomatic and your heart rate is over 100 beats per minute (and you have not been exercising) Bring any of these notes up at your appointment with cardiology. You should follow up with your PCP within one week of discharge. If your symptoms return or worsen, please return to the ED or see your PCP. Current Hospital Diet Patient's current hospital diet: AHA Diet (Heart Healthy), Diabetes Type 2 Diet Discharge Diet Recommended Diet: AHA Diet (Heart Healthy) Pending Studies Studies pending at discharge: no Medical Emergencies . Who to Call and When: Medical Emergencies: If at any time you feel your situation is an emergency, please call 911 immediately. . Non-Emergent Contact Non-Emergency issues call your: Primary Care Provider . . "Provider Documentation" section prepared by Katelynn Doyle. . VTE Core Measure Inpt VTE Proph given/why not?: Enoxaparin (Lovenox)SQ
[2017-03-09] MEDS ORDERED: VERA240T20 PO (13:40)
[2017-03-09 14:39] LABS: URINE APPEARANCE CLEAR (CLEAR); URINE BILIRUBIN NEG (NEG); URINE COLOR YELLOW; URINE NITRITE NEG (NEG); URINE SPECIFIC GRAVITY 1.014 (1.000-1.030); UROBILINOGEN NEG (NEG); ZZUR CULT IF INDIC CLEAN CATCH NO
[2017-03-09 14:42] LABS: MANUAL MICROSCOPIC REQUIRED? NO; REVIEW REQ? NO
--- NOTE | 2017-03-09 14:44 | Cardiology Consultation ---
Cardiology Consultation Date of Consultation: Mar 09, 2017. Pt evaluation today including: conversation w/ patient, conversation w/ family , physical exam, chart review, lab review, review of inpatient medication list History of Present Illness This is a PGY1 resident's note - Dr. Mckeon's note is a separate document Ms. Garcia is a dawna 61 year old lady who was referred to the emergency department by her PCP yesterday afternoon due to a new onset of atrial fibrillation and increased blood pressure (approx 160/100). She had presented to her PCP for complaints of UTI symptoms, including dysuria and frequency. She denies palpitations or syncopal episodes, but states that she has had intermittent shortness of breath, dizziness and fleeting chest pains that come and go, and are unrelated to exercise over the last couple of months. Her symptoms are not interfering with her ADL's or limiting her exercise, however she notes that on certain days she gets SOB and sweats much more quickly than other days. She is unsure if these symptoms are related to her asthma or to her heart. She states that she has always had an abnormal heart rhythm, with PVCs. 3 years ago she was admitted to [facility] for chest pain and bradycardia. The EKG and stress ECHO performed then were both normal, and her symptoms were presumed to have come from her verapamil dosage of 360mg. This was then cut from 360mg to 180mg, and she has not had any bradycardic episodes since. She has a history of asthma, type 2 diabetes mellitus, controlled by diet and exercise with her last HbA1c in September at 5.9%, hypertension, hyperlipidemia and hypothyroidism. Past Medical/Surgical History Past Medical History: - asthma - Type 2 DM, controlled by diet and exercise - Hypertension - Hyperlipidemia - Hypothyroidism Family History Diabetes mellitus FH: heart disease FH: lung disease Hypertension Kidney disease Social History Smoking Status: Former Smoker (17 pack year history, quit at 30) History of Alcohol Use: Yes (Martini every night) Review of Systems Constitutional: + fatigue, No fever, No chills, No weight loss, No weakness Respiratory: + dyspnea on exertion, No cough, No sputum, No wheezing, No shortness of breath Cardiac: + chest pain, No orthopnea, No PND, No edema, No palpitations Abdomen: No pain, No nausea, No vomiting, No diarrhea Female : + dysuria, + urinary frequency All Other Systems: Reviewed and Negative Allergies Coded Allergies: Atenolol (Verified Allergy, Unknown, HAS ASTHMA, 03/08/17) Iodinated Diagnostic Agents (Verified Allergy, Unknown, RASH, HIVES, ) Metoprolol (Verified Allergy, Unknown, HAS ASTHMA, 03/08/17) Sulfa Antibiotics (Verified Allergy, Unknown, ., 03/08/17) Uncoded Allergies: MOST ANITBOTICS (Adverse Reaction, Unknown, UNKNOWN, 01/02/14) Medications Current Inpatient Medications Medications (Trade) Dose Ordered Sig/Keo Route Start Time Stop Time Status Last Admin Dose Admin Potassium Chloride/Sodium Chloride 1,000 ml @ 100 mls/hr Q10H IV 03/08/17 22:00 04/07/17 21:59 03/09/17 08:11 100 MLS/HR Acetaminophen (Tylenol Tab) 650 mg Q4H PRN PO 03/08/17 20:45 04/07/17 20:44 Al Hydrox/Mg Hydrox/Simethicone (Maalox Max Susp) 15 ml Q4H PRN PO 03/08/17 20:45 04/07/17 20:44 Ondansetron HCl (Zofran Inj) 4 mg Q6H PRN IV 03/08/17 20:45 04/07/17 20:44 Polyethylene (Miralax Powder Packet) 17 gm DAILY PRN PO 03/08/17 20:45 04/07/17 20:44 Verapamil HCl (Calan-Sr Tab) 180 mg BID PO 03/08/17 21:00 04/07/17 20:59 03/09/17 08:13 180 MG Citalopram Hydrobromide (celeXA TAB) 5 mg HS PO 03/08/17 21:00 04/07/17 20:59 Fluticasone Propionate (Flonase Nasal [place]) 2 sprays BID SUE 03/08/17 21:00 04/07/17 20:59 03/09/17 08:12 2 SPRAYS HCTZ/ Spironolactone (Aldactazide 25/ 25 Tab) 1 tab BID17 PO 03/08/17 21:00 04/07/17 20:59 03/09/17 08:13 1 TAB Levothyroxine Sodium (Synthroid Tab) 88 mcg DAILYBB PO 03/09/17 06:00 04/08/17 06:59 03/09/17 05:38 88 MCG Lorazepam (Ativan Tab) 0.5 mg HS PRN PO 03/08/17 20:45 04/07/17 20:44 Montelukast Sodium (Singulair Tab) 10 mg HS PO 03/08/17 21:00 04/07/17 20:59 Pravastatin Sodium (Pravachol Tab) 10 mg HS PO 03/08/17 21:00 04/07/17 20:59 Budesonide (Pulmicort Inhaler) 4 puffs BID INH 03/08/17 21:00 04/07/17 20:59 03/09/17 08:12 4 PUFFS Colesevelam HCl (Welchol) 1,875 mg BID PO 03/08/17 21:00 04/07/17 20:59 03/09/17 08:13 1,875 MG Febuxostat (Uloric) 40 mg HS PO 03/08/17 21:00 04/07/17 20:59 Pantoprazole Sodium (Protonix Tab) 40 mg QAM PO 03/09/17 09:00 04/08/17 08:59 03/09/17 08:13 40 MG Enoxaparin Sodium (Lovenox Inj) 141 mg QAM SQ 03/09/17 09:00 04/08/17 08:59 03/09/17 03:40 141 MG Physical Exam Vital Signs Past 12 Hours Date Time Temp Pulse Resp B/P (MAP) Pulse Ox O2 Delivery O2 Flow Rate FiO2 03/09/17 08:00 Room Air 03/09/17 07:30 37.0 84 17 120/83 (95) 96 Room Air 03/09/17 04:48 36.7 99 20 101/65 (77) 96 Room Air 03/09/17 04:00 36.8 99 16 101/61 (74) 93 Room Air 03/09/17 04:00 94 Room Air 03/09/17 02:45 101 03/09/17 02:30 99 03/09/17 02:15 101 03/09/17 02:00 101 03/09/17 01:45 105 03/09/17 01:30 97 03/09/17 01:15 106 03/09/17 01:00 102 03/09/17 00:45 100 03/09/17 00:30 103 03/09/17 00:15 92 03/09/17 00:00 94 Room Air 03/09/17 00:00 99 03/08/17 23:45 109 03/08/17 23:30 113 03/08/17 23:15 115 03/08/17 23:00 111 Head: normocephalic, atraumatic Neck: supple, trachea midline Lungs: Respiratory effort: no dyspnea, good air movement Auscultation: breath sounds normal, CTA except as noted, no wheezing, no rales/crackles, no rhonchi Cardiovascular: Apical Impulse: not displaced Heart Auscultation: normal S1, normal S2, no murmurs, no rubs, no gallops, irregular rate rhythm Abdomen: Bowel Sounds: normal Inspection & Palpation: soft, non-distended, no tenderness, guarding & rebound, no masses, no CVA tenderness Liver: non-tender, no hepatomegaly Data Laboratory Results: Last 24 Hours Test 03/08/17 17:42 03/08/17 18:00 03/08/17 18:05 03/09/17 06:30 Creatine Kinase MB Ratio 1.4 White Blood Count 8.96 K/uL 7.47 K/uL Red Blood Count 5.26 M/uL 4.86 M/uL Hemoglobin 15.7 g/dL 14.2 g/dL Hematocrit 46.8 % 43.2 % Mean Corpuscular Volume 89.0 fL 88.9 fL Mean Corpuscular Hemoglobin 29.8 pg 29.2 pg Mean Corpuscular Hemoglobin Concent 33.5 g/dl 32.9 g/dl Platelet Count 279 K/uL 257 K/uL Mean Platelet Volume 11.3 fL 10.8 fL Neutrophils (%) (Auto) 64.8 % 58.1 % Lymphocytes (%) (Auto) 23.8 % 29.6 % Monocytes (%) (Auto) 8.0 % 8.4 % Eosinophils (%) (Auto) 2.5 % 3.2 % Basophils (%) (Auto) 0.6 % 0.4 % Neutrophils # (Auto) 5.81 K/uL 4.34 K/uL Lymphocytes # (Auto) 2.13 K/uL 2.21 K/uL Monocytes # (Auto) 0.72 K/uL 0.63 K/uL Eosinophils # (Auto) 0.22 K/uL 0.24 K/uL Basophils # (Auto) 0.05 K/uL 0.03 K/uL RDW Standard Deviation 42.6 fL 43.0 fL RDW Coefficient of Variation 13.1 % 13.2 % Immature Granulocyte % (Auto) 0.3 % 0.3 % Immature Granulocyte # (Auto) 0.03 K/uL 0.02 K/uL Prothrombin Time 10.7 SECONDS 11.3 SECONDS Prothromb Time International Ratio 1.0 1.1 Activated Partial Thromboplast Time 25.8 SECONDS 32.3 SECONDS Partial Thromboplastin Ratio 1.0 1.2 Sodium Level 138 mmol/L 142 mmol/L Potassium Level 3.4 mmol/L 3.8 mmol/L Chloride Level 101 mmol/L 108 mmol/L Carbon Dioxide Level 28 mmol/L 27 mmol/L Anion Gap 9.0 mmol/L 7.0 mmol/L Blood Urea Nitrogen 24 mg/dl 17 mg/dl Creatinine 1.10 mg/dl 0.91 mg/dl Est Creatinine Clear Calc Drug Dose 60.8 ml/min 73.6 ml/min Estimated GFR () 62.8 78.9 Estimated GFR (Non- 54.1 68.1 BUN/Creatinine Ratio 22.2 18.7 Random Glucose 94 mg/dl 127 mg/dl Calcium Level 10.0 mg/dl 9.0 mg/dl Magnesium Level 1.8 mg/dl 1.9 mg/dl Total Bilirubin 0.4 mg/dl Direct Bilirubin < 0.1 mg/dl Aspartate Amino Transf (AST/SGOT) 16 U/L Alanine Aminotransferase (ALT/SGPT) 34 U/L Alkaline Phosphatase 76 U/L Total Creatine Kinase 42 U/L Creatine Kinase MB 0.6 ng/ml Total Protein 7.1 gm/dl Albumin 3.7 gm/dl Lipase 82 U/L Thyroid Stimulating Hormone (TSH) 2.760 uIu/ml Hepatitis C Antibody Screen NEG Bedside D-Dimer 207 ng/mlFEU Bedside Troponin I < 0.030 ng/ml [id number] Natriuretic Peptide 281 pg/ml Phosphorus Level 3.0 mg/dl Imaging: EKG: Telemetry reviewed: Assessment & Plan Atrial Fibrillation with RVR - CXR negative, TSH normal, electrolytes normal - ECHO done today showed no valvular pathology, borderline dilated LV, and LVEF of 50-55% - Continue verapamil 180mg BD - she is now in rate controlled afib with a HR in the 80s - Discharge on Xarelto - The options of rate control, cardioversion and ablation were explained to Ms. Garcia, and she elected to have a trial on rate control with anticoagulation - she is well enough for discharge today and will be going on vacation on Sunday and was told to go to the hospital if she experienced symptomatic afib or if her pulse was in the 100s and not decreasing with rest - She was also counselled on decreasing alcohol intake as this may play a role in her afib Diabetes Mellitus Type 2 - monitor glucose levels - continue diet and exercise regimen upon d/c Hypertension - continue aldactazide Hyperlipidemia - continue statin and colesevalem Resident Tracking Resident Involvement: Resident Care Provided Care Provided: Adult Hospital Medicine
--- NOTE | 2017-03-09 17:32 | Discharge Summary ---
Discharge Summary Date of Service Mar 09, 2017. (Katelynn Doyle M.D.) Discharge Summary Admission Date: Mar 08, 2017 at 20:43 Discharge Date: Mar 09, 2017 Discharge Disposition: Home Principal Diagnosis: Atrial fibrillation Immunizations: Have You Had Influenza Vaccine: Yes History of Tetanus Vaccine?: Yes Tetanus Immunization Date: Oct 30, 2007 History of Pneumococcal: Yes History of Hepatitis B Vaccine: No Procedures: Echo: * 1. Borderline dilated LV, with borderline concentric LVH. * 2. Normal LV systolic function. LVEF 50-55%. No regional wall motion abnormalities. * 3. Normal RV size and function. * 4. Mild left atrial enlargement. * 5. No significant valvular pathology. * 6. Compared with prior study on 01/03/2014: Atrial fibrillation is new. CXR: IMPRESSION: No acute cardiopulmonary abnormality. (Katelynn Doyle M.D.) Medication Reconciliation New Medications: Rivaroxaban (Xarelto) 20 Mg Tab 20 MG PO DAILY for 30 Days, #30 TAB Verapamil Sust Rel (Calan Sr Ext Rel) 240 Mg Tabcr 240 MG PO OD for 30 Days, TAB Continued Medications: Budesonide (Inhalation) (Pulmicort Flexhaler) 180 Mcg/Act Inh 2 PUFFS INH BID rinse mouth after use Cholecalciferol (Vitamin D3) 1,000 Unit Tab 1000 UNITS PO BID for 90 Days, TAB 3 Refills Citalopram Hydrobromide (Celexa) 10 Mg Tab 5 MG PO HS, TAB Colesevelam (Welchol) 625 Mg Tab 1875 MG PO BID, TAB 3 TABLET DOSE Febuxostat (Uloric) 40 Mg Tab 40 MG PO HS for 90 Days, TAB 3 Refills Fluticasone Propionate (Nasal) (Flonase Allergy Relief) 50 Mcg/Act Spr 2 SPRAYS SUE BID Hctz/Spironolactone 25MG/25MG (Aldactazide 25MG/25MG) 1 Tab Tab 1 TAB PO BID, TAB Home O2 Therapy (Oxygen) Gas 2 LITERS NA HS Levothyroxine Sodium (Levothyroxine Sodium) 88 Mcg Tab 88 MCG PO DAILY for 90 Days, #90 TAB 3 Refills Lorazepam (Ativan) 0.5 Mg Tab 0.5 MG PO HS PRN for anxiety, TAB Montelukast Sodium (Singulair) 10 Mg Tab 10 MG PO HS, TAB Omeprazole (Prilosec) 20 Mg Capcr 20 MG PO QAM, CAP Pravastatin (Pravachol ) 20 Mg Tab 10 MG PO HS, TAB Discontinued Medications: Verapamil Hcl (Verapamil Hcl Er) 180 Mg Cap 180 MG PO HS Discharge Exam Review of Systems: Constitutional: No fever, No chills, No sweats, No weight loss, No weakness , No fatigue, No problem reported Eyes: No worsening of vision, No eye pain, No redness, No discharge, No diplopia, No problem reported ENT: No hearing loss, No unusual epistaxis, No nasal symptoms, No sore throat, No tinnitus, No dental problems, No trouble swallowing, No problem reported Respiratory: No cough, No sputum, No wheezing, No shortness of breath, No dyspnea on exertion, No dyspnea at rest, No hemoptysis, No problem reported Cardiovascular: + palpitations, No chest pain, No orthopnea, No PND, No edema, No claudication, No problem reported Abdomen: No pain, No nausea, No vomiting, No diarrhea, No constipation, No GI bleeding, No problem reported Musculoskeletal: No joint pain, No muscle pain, No swelling, No calf pain, No problem reported Genitourinary - Female: No dysuria, No urinary frequency, No urinary urgency , No urinary incontinence, No urinary retention, No hematuria, No dysmenorrhea, No menorrhagia, No metrorrhagia, No rash, No vaginal bleeding, No vaginal discharge, No vaginal itching, No vulvodynia, No , No problem reported Neurologic: No memory loss, No paralysis, No weakness, No numbness/tingling , No vertigo, No balance problems, No problem reported Psychiatric: No depression symptoms, No anhedonism, No anxiety, No insomnia , No substance abuse, No problem reported Endocrine: No fatigue, No excessive thirst, No excessive urination, No problem reported Hematologic / Lymphatic: No abnormal bleeding/bruising, No clotting problems , No swollen lymph nodes, No night sweats, No problem reported Integumentary: No rash, No itch, No new/changing skin lesions, No color change, No bleeding, No problem reported Physical Exam: General Appearance: no apparent distress Eyes: normal inspection, PERRL, EOMI, sclerae normal ENT: hearing grossly normal, pharynx normal Neck: supple, no JVD, no carotid bruits, trachea midline Respiratory/Chest: chest non-tender, lungs clear, normal breath sounds, no respiratory distress, no accessory muscle use Cardiovascular: no edema, no JVD, no murmur, + irregularly irregular, + abnormal rhythm Abdomen / GI: normal bowel sounds, non tender, soft, no organomegaly, no pulsatile mass Extremities: normal inspection, no pedal edema, normal range of motion, non- tender 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 PMH includes:asthma, diabetes, hypertension, hyperlipidemia, hypothyroidism The patient recently had urinary symptoms and was seen by PCP and found to have elevated heart rate and blood pressure, and an irregular heartbeat. The patient stated that she had been having a sensation of irregular heartbeat for a few months. Hospital Course: Atrial Fibrillation - EKG: Atrial fibrillation with rapid ventricular response with premature ventricular or aberrantly conducted complexes w/ Nonspecific T wave abnormality - TSH within normal range - K at 3.4, repleted - Patient cannot tolerate metoprolol - Increased dosage of verapamil to 240 mg once a day from 180 mg daily - [id number] VASC score of 3 , started on Lovenox for anticoagulation - After being presented with the options, patient chose to start Xarelto 20mg OD on discharge - Discussed theory and practice of controlling rate vs rhythm. - Discussed reason why we will try rate control and anti-coagulation for about 3 weeks until cardiology appointment - Cardiology will decide if her symptoms are well managed with rate control only or if further eval/rhythm control is in her future. Asthma: - Stable - Continue Pulmicort HTN - Continue verapamil, Aldactazide Diabetes: - Diet controlled Hypothyroidism: - Continue Synthroid Gout: -Continue to febuxostat Total Time Spent: Less than 30 minutes This includes examination of the patient, discharge planning, medication reconciliation, and communication with other providers. (Katelynn Doyle M.D.) Resident Physician Supervision Note: I interviewed and examined the patient. Discussed with Dr. Doyle and agree with findings and plan as documented in the note. Any exceptions or clarifications are listed here: None Documented By: Chente White feeling better now that rate down. did feel some GUAJARDO, just cloudy as well. no other new complaints. extensive discussion on afib, rate vs rhythm strategies and evidence on both, need for anticoagulation and methods of anticoagulation, for which she expressed a strong desire for NOAC. asked about going to the [place] next week - [facility] actually close to [facility]. discussed risks/pitfalls and common sense precautions. all other ROS otherwise negative except for as above vitals noted nad breathing unlabored no pallor or icterus no focal neuro deficits new onset afib - rate now controlled. not clear if sx were just from rate or actually from rhythm (statistically far more likely to have been from uncontrolled rate) -- home on increased verapamil, xarelto. close f/u. pt/ pleased with care Total Time Spent: Greater than 30 minutes (Chente White, D.O.) Discharge Instructions Please refer to the electronic Patient Visit Report (Discharge Instructions) for additional information. (Katelynn Doyle M.D.) Additional Copies To Jim Jackman M.D. Resident Tracking Resident Involvement: Resident Care Provided Care Provided: Adult Hospital Medicine (Katelynn Doyle M.D.)
--- NOTE | 2017-03-09 18:01 | Cardiology Consultation ---
Cardiology Consultation Date of Consultation: Mar 09, 2017. Requesting Physician: Dr. Lemons Attending Physician: Dr. White Reason for Consultation: atrial fibrillation Pt evaluation today including: conversation w/ patient, physical exam, chart review, lab review, review of studies, review of inpatient medication list, conversation w/ attending History of Present Illness Ms. Garcia is a pleasant 61-year-old female with a history significant for asthma (intolerant to beta-blockers), type 2 diabetes, hypertension, dyslipidemia, and hypothyroidism. Cardiology consultation was requested for atrial fibrillation. While at her PCPs office, for urinary complaints, she was found have elevated heart rate and hypertension. She apparently had been experiencing intermittent episodes of dyspnea with exertion, especially while climbing hills or steps. She is also had intermittent episodes of chest discomfort that can occur at any time and are not related to exertion. She denies palpitations, syncope, near- syncope, melena, hematochezia, hematuria, other bleeding, edema, orthopnea, or shortness of breath at rest. She was found to be in atrial fibrillation on ECG. Her heart rate was elevated and verapamil was increased by the primary service. Would increase in verapamil , her heart rate has improved. She had been evaluated in the past for PVCs and apparently had bradycardia while on 360 mg of verapamil. Verapamil was then reduced to 180 mg daily and she does not report any further bradycardia. She had been on a beta-radha in the past but this triggered asthma exacerbation and she has avoided beta-radha since then. Review of systems: As above. Review of systems otherwise negative/ unremarkable. Past Medical/Surgical History (1) Asthma, Unspecified (2) Diab Anabelle Wo Compl, Type Ii Or Unspec Type, Not Uncntrld (3) Esophageal Reflux (4) Gout Nos (5) Hyperlipidemia Nec/Nos (6) Hypertension Nos (7) Hypothyroidism Nos (8) New onset a-fib Family History Diabetes mellitus FH: heart disease FH: lung disease Hypertension Kidney disease Mother at the age of 72 from myocardial infarction. Father had renal failure. Social History Smoking Status: Former Smoker (17 pack year history, quit at 30) History of Alcohol Use: Yes (Yadi every night) She estimates consuming 3 or 4 oz of alcohol per night. She lives at home with her . She has 2 children. Twin grandchildren. She is currently unaccompanied in her hospital room. All Other Systems: Reviewed and Negative Allergies Coded Allergies: Atenolol (Verified Allergy, Unknown, HAS ASTHMA, 03/08/17) Iodinated Diagnostic Agents (Verified Allergy, Unknown, RASH, HIVES, ) Metoprolol (Verified Allergy, Unknown, HAS ASTHMA, 03/08/17) Sulfa Antibiotics (Verified Allergy, Unknown, ., 03/08/17) Uncoded Allergies: MOST ANITBOTICS (Adverse Reaction, Unknown, UNKNOWN, 01/02/14) Medications Reported Home Medications Medications Dose Route/Sig Max Daily Dose Days Date Category Dose Instructions Calan Sr Ext Rel (Verapamil HCl) 240 Mg Tabcr 240 Mg PO OD 30 03/09/17 Rx Xarelto (Rivaroxaban) 20 Mg Tab 20 Mg PO DAILY 30 03/09/17 Rx Vitamin D3 (Cholecalciferol) 1,000 Unit Tab 1,000 Units PO BID 90 03/08/17 Reported Uloric (Febuxostat) 40 Mg Tab 40 Mg PO HS 90 03/08/17 Reported Pravachol (Pravastatin Sodium) 20 Mg Tab 10 Mg PO HS 03/08/17 Reported Singulair (Montelukast Sodium) 10 Mg Tab 10 Mg PO HS 03/08/17 Reported Levothyroxine Sodium 88 Mcg Tab 88 Mcg PO DAILY 90 03/08/17 Reported Aldactazide 25MG/25MG (HCTZ/Spironolactone) 1 Tab Tab 1 Tab PO BID 03/08/17 Reported Flonase Allergy Relief (Fluticasone Propionate (Nasal)) 50 Mcg/Act Spr 2 Sprays SUE BID 03/08/17 Reported Celexa (Citalopram Hydrobromide) 10 Mg Tab 5 Mg PO HS 03/08/17 Reported Welchol (Colesevelam HCl) 625 Mg Tab 1,875 Mg PO BID 10/20/13 Reported 3 TABLET DOSE Oxygen Gas 2 Liters NA HS 10/20/13 Reported Pulmicort Flexhaler (Budesonide (Inhalation)) 180 Mcg/Act Inh 2 Puffs INH BID 10/20/13 Reported rinse mouth after use Ativan (Lorazepam) 0.5 Mg Tab 0.5 Mg PO HS PRN 10/20/13 Reported Prilosec (Omeprazole) 20 Mg Capcr 20 Mg PO QAM 10/20/13 Reported Physical Exam Vital Signs Past 12 Hours Date Time Temp Pulse Resp B/P (MAP) Pulse Ox O2 Delivery O2 Flow Rate FiO2 03/09/17 14:50 36.9 83 18 95 Room Air 03/09/17 12:00 Room Air 03/09/17 11:31 36.9 83 18 99/66 (77) 95 Room Air 03/09/17 08:00 Room Air 03/09/17 07:30 37.0 84 17 120/83 (95) 96 Room Air Lungs: Respiratory effort: no dyspnea, good air movement Auscultation: breath sounds normal, CTA except as noted, no wheezing, no rales/crackles, no rhonchi Cardiovascular: Apical Impulse: not displaced Heart Auscultation: normal S1, normal S2, no murmurs, no rubs, no gallops, irregular rate rhythm Abdomen: Bowel Sounds: normal Inspection & Palpation: soft, non-distended, no tenderness, guarding & rebound, no masses, no CVA tenderness Liver: non-tender, no hepatomegaly Gen.: No acute distress. Alert and oriented. HEENT: Anicteric sclera. Neck: No JVD. No bruits. Normal carotid upstrokes bilaterally. Cardiac: PMI was nondisplaced. No ventricular heave. Irregularly irregular. Normal S1-S2. No murmurs, rubs, or gallops. Pulmonary: Clear to auscultation bilaterally without wheezes, rales, or rhonchi. Abdomen: Soft, nontender, nondistended, with normoactive bowel sounds. No bruits noted. Extremities: 2+ radial pulses bilaterally. 2+ posterior tibialis pulses bilaterally. No edema or cyanosis. Psychiatric: Affect appears appropriate. Data Laboratory Results: Last 24 Hours Test 03/08/17 18:00 03/08/17 18:05 03/09/17 00:00 03/09/17 06:30 White Blood Count 8.96 K/uL 7.47 K/uL Red Blood Count 5.26 M/uL 4.86 M/uL Hemoglobin 15.7 g/dL 14.2 g/dL Hematocrit 46.8 % 43.2 % Mean Corpuscular Volume 89.0 fL 88.9 fL Mean Corpuscular Hemoglobin 29.8 pg 29.2 pg Mean Corpuscular Hemoglobin Concent 33.5 g/dl 32.9 g/dl Platelet Count 279 K/uL 257 K/uL Mean Platelet Volume 11.3 fL 10.8 fL Neutrophils (%) (Auto) 64.8 % 58.1 % Lymphocytes (%) (Auto) 23.8 % 29.6 % Monocytes (%) (Auto) 8.0 % 8.4 % Eosinophils (%) (Auto) 2.5 % 3.2 % Basophils (%) (Auto) 0.6 % 0.4 % Neutrophils # (Auto) 5.81 K/uL 4.34 K/uL Lymphocytes # (Auto) 2.13 K/uL 2.21 K/uL Monocytes # (Auto) 0.72 K/uL 0.63 K/uL Eosinophils # (Auto) 0.22 K/uL 0.24 K/uL Basophils # (Auto) 0.05 K/uL 0.03 K/uL RDW Standard Deviation 42.6 fL 43.0 fL RDW Coefficient of Variation 13.1 % 13.2 % Immature Granulocyte % (Auto) 0.3 % 0.3 % Immature Granulocyte # (Auto) 0.03 K/uL 0.02 K/uL Prothrombin Time 10.7 SECONDS 11.3 SECONDS Prothromb Time International Ratio 1.0 1.1 Activated Partial Thromboplast Time 25.8 SECONDS 32.3 SECONDS Partial Thromboplastin Ratio 1.0 1.2 Sodium Level 138 mmol/L 142 mmol/L Potassium Level 3.4 mmol/L 3.8 mmol/L Chloride Level 101 mmol/L 108 mmol/L Carbon Dioxide Level 28 mmol/L 27 mmol/L Anion Gap 9.0 mmol/L 7.0 mmol/L Blood Urea Nitrogen 24 mg/dl 17 mg/dl Creatinine 1.10 mg/dl 0.91 mg/dl Est Creatinine Clear Calc Drug Dose 60.8 ml/min 73.6 ml/min Estimated GFR () 62.8 78.9 Estimated GFR (Non- 54.1 68.1 BUN/Creatinine Ratio 22.2 18.7 Random Glucose 94 mg/dl 127 mg/dl Calcium Level 10.0 mg/dl 9.0 mg/dl Magnesium Level 1.8 mg/dl 1.9 mg/dl Total Bilirubin 0.4 mg/dl Direct Bilirubin < 0.1 mg/dl Aspartate Amino Transf (AST/SGOT) 16 U/L Alanine Aminotransferase (ALT/SGPT) 34 U/L Alkaline Phosphatase 76 U/L Total Creatine Kinase 42 U/L Creatine Kinase MB 0.6 ng/ml Creatine Kinase MB Ratio 1.4 Total Protein 7.1 gm/dl Albumin 3.7 gm/dl Lipase 82 U/L Thyroid Stimulating Hormone (TSH) 2.760 uIu/ml Hepatitis C Antibody Screen NEG Bedside D-Dimer 207 ng/mlFEU Bedside Troponin I < 0.030 ng/ml PL-Bpl-U-Type Natriuretic Peptide 281 pg/ml Urine Color YELLOW Urine Appearance CLEAR Urine pH 5.0 Urine Specific [place] 1.014 Urine Protein NEG Urine Glucose (UA) NEG Urine Ketones NEG Urine Occult Blood NEG Urine Nitrite NEG Urine Bilirubin NEG Urine Urobilinogen NEG Urine Leukocyte Esterase NEG Phosphorus Level 3.0 mg/dl Test 03/09/17 11:00 Bedside Glucose 149 mg/dl ECG personally reviewed. ECG 03/08/2017 at 5:51 p.m.: Atrial fibrillation with rapid ventricular response. PVCs. Cannot rule out anterior infarct. Nonspecific T-wave abnormality. Echo 03/09/2017: Interpreted as normal LV systolic function. EF 50-55%. Normal wall motion. Mild left atrial dilation. No significant valvular abnormalities. Chest x-ray 03/08/2017: No acute cardiopulmonary abnormality as per Radiology. Telemetry reviewed: Atrial fibrillation. Assessment & Plan 1. Atrial fibrillation: We discussed potential treatment strategies. She appears to be asymptomatic currently well on rate control strategy. Verapamil has been increased by the primary service to 240 mg daily. A discussion was offered to further explain atrial fibrillation, however she declined stating that it has been well explained by other providers. She is comfortable with rate control strategy. Electrical cardioversion was discussed as a potential option for symptoms or inadequate rate control, and can be done as an outpatient after she is adequately anticoagulated for 4 weeks. If she has recurrent issues, transesophageal echo to evaluate for left atrial appendage thrombus can be done and if negative, electrical cardioversion at that time. Verapamil can be further titrated as well if no bradycardia. Digoxin is also another option if necessary, for further rate control if she declines cardioversion. 2. Chest pain: Her chest pain is atypical and is not associated with exertion. It is not likely ischemic in origin. Can be further evaluated if symptoms continue or worsen. 3. Dyspnea with exertion: Could be related to atrial fibrillation with rapid ventricular response. Symptoms will be reassessed as an outpatient in follow- up. 4. Anticoagulation: Anticoagulation is recommended for stroke risk reduction as noted above. We discussed potential options. Xarelto has been prescribed by primary service. Monitor renal function and blood counts periodically. 5. Disposition: Follow-up with Cardiology as an outpatient to reassess for symptoms, rate control, and to discuss potential cardioversion for continued symptoms or inadequate rate control. Patient care has been discussed with Dr. White of the hospitalist service. Thank you for allowing me to participate in the care of your patient. Please call for any other questions or concerns. Sincerely, Kishan Mckeon M.D.
== END 2017-03-09 16:28 | disposition home or self-care (01) | DRG 310 ==
LOC: C.EDB 16:30 → C.2T 20:43 → ENRESERV 21:02
PROVIDERS: ADMIT Family Medicine; ATTEND Family Medicine
DX: I48.91 Unspecified atrial fibrillation (principal); I10 Essential (primary) hypertension; E11.9 Type 2 diabetes mellitus without complications; K21.9 Gastro-esophageal reflux disease without esophagitis; M10.9 Gout, unspecified; E78.5 Hyperlipidemia, unspecified; E03.9 Hypothyroidism, unspecified; J45.909 Unspecified asthma, uncomplicated; Z79.899 Other long term (current) drug therapy; Z79.01 Long term (current) use of anticoagulants

== ENCOUNTER → 2017-04-12 | Day surgery (SDC) | payer BC ==
[~2017-04-12] VITALS: Ht 167.6 cm; Wt 89.5 kg
[~2017-04-12] MED LIST changes: -ALD2525 PO; +APIX1TAB3 PO; +CHOL1000 PO; +CITA10TA8 PO; -CLX20 PO; +FEBU40TA PO; -FLUT0.0529 NAE; +FLUT0.15 NAE; +LEVA45AE; +LEVO88TA3 PO; +LIDOCAINE HCL 2% 2 ML VIAL (20MG/ML) ONE; +MONT1TAB3 PO; +PRAV20TA PO; +PROPOFOL IV EMULSION 10 MG/ML 20 ML VIAL IV ONE; -PRVC20 PO; +RIVA1TAB4 PO; -SNG10 PO; +SPIR50TA PO; -SYN100 PO; +VERA240C2 PO; -XPNIN INH
[2017-04-12 07:00] VITALS: Ht 167.6 cm; Wt 89.5 kg
[2017-04-12 07:02] VITALS: BP 154/83; PULSE 93; TEMP 36.7; O2SAT 96
[2017-04-12 07:30] VITALS: BP 131/62; PULSE 97; O2SAT 96
[2017-04-12 07:40] VITALS: BP 125/73; PULSE 97; O2SAT 96
[2017-04-12 07:45] VITALS: BP 111/53; PULSE 57; O2SAT 96
--- NOTE | 2017-04-12 07:48 | History & Physical Bridge Note ---
H&P Re-Evaluation Bridge Note: I have examined the patient, reviewed the History & Physical and in the interval since the performance of the History & Physical I have noted the following changes of clinical significance: No changes noted
--- NOTE | 2017-04-12 07:54 | Cardioversion ---
Electricial Cardioversion Rpt Date of Service: 04/12/17 Electrical Cardioversion Rprt Procedure: Direct current cardioversion Indications: Atrial fibrillation Consent: Informed consent was obtained prior to the procedure. Sedation: Dr. Lau of Anesthesiology provided sedation with propofol. Procedural details: Atrial fibrillation was noted on telemetry. After time-out was performed, she was sedated and with 200 joules in a synchronized fashion, she was successfully converted to sinus rhythm. She remained hemodynamically stable. Her initial heart rate and rhythm was sinus bradycardia in the 50s. Prior to the procedure there was no interruption of her anticoagulation. Recommendations: Continue anticoagulation without interruption. Continue verapamil. For recurrence, would consider anti rhythmic therapy.
--- NOTE | 2017-04-12 08:21 | Anesthesiology Progress Note ---
Anesthesia Post Op Note Date & Time Apr 12, 2017 at 08:20 Vital Signs Pain Intensity: 0 Vital Signs Past 12 Hours Date Time Temp Pulse Resp B/P (MAP) Pulse Ox O2 Delivery O2 Flow Rate FiO2 04/12/17 08:10 52 18 114/44 (67) 95 Room Air 04/12/17 08:00 53 18 118/49 (72) 96 Room Air 04/12/17 07:45 57 18 111/53 96 Nasal Cannula 4 04/12/17 07:40 97 18 125/73 96 Nasal Cannula 4 04/12/17 07:30 97 18 131/62 96 Nasal Cannula 4 04/12/17 07:02 36.7 93 16 154/83 96 Room Air Notes Mental Status: alert / awake / arousable, participated in evaluation Pt Amnestic to Procedure: Yes Nausea / Vomiting: adequately controlled Pain: adequately controlled Airway Patency, RR, SpO2: stable & adequate BP & HR: stable & adequate Hydration State: stable & adequate Anesthetic Complications: no major complications apparent
--- NOTE | 2017-04-12 08:25 | Discharge Instructions ---
Discharge Instructions Date of Service Apr 12, 2017. Visit Reason for Visit: Cardioversion for atrial fibrillation Discharge Discharge Diagnosis / Problem: Atrial fibrillation successfully converted to sinus rhythm Discharge Goals Goal(s): Therapeutic intervention Medications Restart Stopped Medication(s): Resume your usual medications. No changes made today. Activity Recommendations Activity Limitations: per Instructions/Follow-up section Anesthesia ACTIVITY RECOMMENDATIONS: * May resume driving tomorrow. SPECIAL CARE: * May apply burn ointment for skin irritation. * Please contact physician for any lightheadedness, dizziness or palpitations.. Post Anesthesia Instructions: If you have had General Anesthesia or IV Sedation: * Do not drive today. * Resume driving when surgeon permits. * Do not make important decisions or sign legal documents today. * Call surgeon for: 1. Temperature elevations greater than 101 degrees F. 2. Uncontrollable pain. 3. Excessive bleeding. 4. Persistent nausea and vomiting. 5. Medication intolerance (nausea, vomiting or rash). * For nausea and vomiting use only clear liquids such as: tea, soda, bouillon until nausea subsides, then gradually increase diet as tolerated. * If you have any concerns or questions, call your surgeon's office. If physician is unavailable and it is an emergency, call 911 or go to the nearest emergency room. . Diet Recommendations Recommended Home Diet: resume previous diet Pending Studies Studies pending at discharge: no Medical Emergencies . Who to Call and When: Medical Emergencies: If at any time you feel your situation is an emergency, please call 911 immediately. . Non-Emergent Contact Non-Emergency issues call your: Web Analytics Specialist . . "Provider Documentation" section prepared by Placido Roy. .
--- NOTE | 2017-04-12 08:29 | Discharge Instructions ---
Discharge Instructions Date of Service Apr 12, 2017. Visit Reason for Visit: Cardioversion for atrial fibrillation Discharge Discharge Diagnosis / Problem: Atrial fibrillation successfully converted to sinus rhythm Discharge Goals Goal(s): Therapeutic intervention Medications Restart Stopped Medication(s): Resume your usual medications. No changes made today. Activity Recommendations Activity Limitations: per Instructions/Follow-up section Anesthesia . Post Anesthesia Instructions: If you have had General Anesthesia or IV Sedation: * Do not drive today. * Resume driving when surgeon permits. * Do not make important decisions or sign legal documents today. * Call surgeon for: 1. Temperature elevations greater than 101 degrees F. 2. Uncontrollable pain. 3. Excessive bleeding. 4. Persistent nausea and vomiting. 5. Medication intolerance (nausea, vomiting or rash). * For nausea and vomiting use only clear liquids such as: tea, soda, bouillon until nausea subsides, then gradually increase diet as tolerated. * If you have any concerns or questions, call your surgeon's office. If physician is unavailable and it is an emergency, call 911 or go to the nearest emergency room. . Instructions / Follow-Up Instructions / Follow-Up Follow up: 1. Dr. Mckeon's office will call you with follow up appointment (recommend in the next 1-3 weeks). If you notice your heart rate at home (at rest) over 100 bpm, please call his office. ACTIVITY RECOMMENDATIONS: * May resume driving tomorrow. SPECIAL CARE: * May apply burn ointment for skin irritation. * Please contact physician for any lightheadedness, dizziness or palpitations. Diet Recommendations Recommended Home Diet: resume previous diet Pending Studies Studies pending at discharge: no Medical Emergencies . Who to Call and When: Medical Emergencies: If at any time you feel your situation is an emergency, please call 911 immediately. . Non-Emergent Contact Non-Emergency issues call your: Cat Swamper . . "Provider Documentation" section prepared by Placido Roy. .
[2017-04-12 08:30] VITALS: BP 115/62; PULSE 54; O2SAT 96
== END | disposition home or self-care (01) ==
LOC: C.CATH 06:45
PROVIDERS: ATTEND Internal Medicine Cardiovascular Disease
DX: I48.91 Unspecified atrial fibrillation (principal); I10 Essential (primary) hypertension; R00.2 Palpitations; R06.02 Shortness of breath; J45.909 Unspecified asthma, uncomplicated; E78.5 Hyperlipidemia, unspecified; F41.8 Other specified anxiety disorders; M10.9 Gout, unspecified; E03.9 Hypothyroidism, unspecified; E66.9 Obesity, unspecified; G47.33 Obstructive sleep apnea (adult) (pediatric); E11.9 Type 2 diabetes mellitus without complications; E55.9 Vitamin D deficiency, unspecified; Z80.3 Family history of malignant neoplasm of breast; Z80.0 Family history of malignant neoplasm of digestive organs; Z83.3 Family history of diabetes mellitus; Z82.49 Family history of ischemic heart disease and other diseases of the circulatory system; Z84.2 Family history of other diseases of the genitourinary system; Z87.891 Personal history of nicotine dependence

== ENCOUNTER → 2017-07-11 | Outpatient (CLI) | payer BC ==
[~2017-07-11] MED LIST changes: -LIDOCAINE HCL 2% 2 ML VIAL (20MG/ML) ONE; -PROPOFOL IV EMULSION 10 MG/ML 20 ML VIAL IV ONE; -RIVA1TAB4 PO
--- NOTE | 2017-07-12 06:19 | PAP/PSG TECHNICIAN REPORT ---
[facility] Textile Scrap Salvager Polysomnogram Report Study name: None Report date: 07/12/2017 Study date: 07/11/2017 Referring Physician: DR. LOPES Name: JOHNSON CISSE Interpreting Physician: Parveen Lopes M.D. Date of : 1955 Textile Scrap Salvager: AMRITA Tejada. Sex: Female Age: 61 StudyType: PSG PAP Weight: 202 lbs 15.5 inches Height: 61 years, Height 5' 5" Neck Circum: BMI: 33.61 Medications: CITALOPRAM HYDROBROMIDE 10 MG, ELIQUIS 5 MG, FLECAINIDE ACETATE 50 MG, FLUTICASONE PROPIONATE 50 MCG/ACT, LEVOTYROXINE SODIUM 88 MCG, MONTELUKAST SODIUM 10 MG, OMEPRAZOLE 20 MG, OXYGEN 2L, PRAVASTATIN SODIUM 20 MG, PREDNISONE 5 MG, PULMIORT FLEXHALER 180 MCG/ACT, ULORIC 40 MG, VERAPAMIL HCL ER 360 MG, VIT D, WELCHOL 625 MG, XOPENEX HFA 45 MCG/ACT Patient History PATIENT HAS HISTORY OF A-FIB, HYPERTENSION, GERD, DEPRESSION, ANXIETY AND BETHEL. SHE HAD A SLEEP STUDY DONE IN JUNE OF 2017 AND WAS POSITIVE FOR BETHEL WITH AN AHI OF 22.1/HR. SHE IS HERE TODAY FOR CPAP TITRATION. RM 3 Parameters Monitored NPSG: E1-M2, E2-M1, Fp1-M2, Fp2-M1, F3-M2, F4-M2, F4-M1, C3-M2, C4-M2, C4-M1, O1-M2, O2-M2, O2-M1, T3-M2, T4-M1, P3-M2, P4-M1, CHIN1, CHIN2, HR, EKG, Legs, PFLOW, SNOR, FLOW, CFLOW, Tidal Volume, THOR, ABDO, SpO2, PLTH, CPRESS, ETCO2 Wave, ETCO2, pH Sleep Architecture Sleep Stages Time at Lights Off 10:18:37 PM STAGES Time (min.) TST (%) Time at Lights On 5:28:07 AM Wake 121.5 -- Total Recording Time (TRT) 430.00 min. N1 20.5 7 Total Sleep Period (TSP) 416.0 min. N2 164.5 53 Total Sleep Time (TST) 308.0min. N3 78.0 25 Awake Time 121.5 min. REM 45.0 15 Wake after Sleep Onset 108.0 min. Sleep Efficiency (SE) 72 % Sleep Onset Latency (JOSE RAUL) 13.5 min. Number of Stage 1 Shifts None Awakenings 24 Stage Changes 89 Number of REM periods 2 REM 45.0 15 REM Latency 109.0 min. NREM 263.0 85 Body Position Analysis Supine Right Left Side Prone Vertical Total Sleep Time (min.) 156.2 169.7 53.0 222.68 0.0 0.0 Total Sleep Time (%) 28% 55% 17% 72 0% N/A% Total Sleep Time REM (min.) 45.0 0.0 0.0 None 0.0 0.0 Total Sleep Time NREM (min.) 40.3 169.7 53.0 None 0.0 0.0 Intermittent Wake (min.) 70.9 39.8 10.8 None 0.0 0.0 Total Sleep Period (%) 37% None None None None None Arousals Myoclonus (PLM) * Events Count Index Events Count Index Spontaneous 39 8 Events Awake (PLMW) 104 51.4 Respiratory 4 0.8 Events Asleep w/ Arousal (PLMA) 17 3.3 PLM 17 3 Events Asleep w/o Arousal (PLMS) 106 20.6 Snoring 2 0 Total Asleep 123 24.0 Total 62 12 Total 227 32 Respiratory Analysis * CA OA MA CH H RERA Total Count 12 1 0 0 45 0 58 Index 2.3 0.2 0.0 0 8.8 0 11.3 Mean Duration 15.7 14.1 0.0 0.00 14.7 0.0 14.9 Longest Duration 20.4 14.1 0.0 0.00 0.0 0.0 26.5 Respiratory Event Summary Total Supine ~Supine Right Left Prone REM NREM Apneas Count 13 10 3 3 0 N/A 0 13 Index 2.5 7 1 1.1 0.0 N/A 0 3 Hypopneas (4% Desat) Count 45 18 27 18 9 N/A 1 44 Index 8.8 12.7 7 6.4 10.2 N/A 1.3 10.0 Apneas & All Hypopneas Count 58 28 30 21 9 N/A 1 57 Index 11.3 20 8 7 10 N/A 1.3 13.0 Respiratory Events (Phototypesetter Operator+All Hyp+RERA) Count 58 28 30 21 9 N/A 1 57 Index 11.3 20 8 7.4 10.2 N/A 1.3 13.0 Respiratory Related Arousal Count 4 28 1 1 0 N/A 0 4 Index 0.8 2 0 0 0 N/A 0 1 Snoring Analysis Supine Right Left Prone REM NREM Total Snore duration 3.5 min Snores count 4 183 2 N/A 0 189 189 Snore mean duration 1.1 Sec Snores index 3 65 2 N/A 0.0 43.1 36.8 TST with snoring (%) 1.1% Desaturation Event Summary: Minimum %SpO2 Event Count Mean/Min/Max Duration(sec.) Desaturation Index % Time In Bed > 90 71 22.0 / 12.3 / 53.0 16.7 60.5 86 - 90 22 18.6 / 12.8 / 30.3 7.9 39.4 81 - 85 0 N/A 0.0 0.1 76 - 80 0 N/A 0.0 0.0 71 - 75 0 N/A 0.0 0.0 66 - 70 0 N/A 0.0 0.0 61 - 65 0 N/A 0.0 0.0 56 - 60 0 N/A 0.0 0.0 51 - 55 0 N/A 0.0 0.0 < 50 0 N/A 0.0 0.0 Total REM NREM Awake <50% 0.0 min. 0.0 min. 0.0 min. 0.0 min. 51 - 60% 0.0 min. 0.0 min. 0.0 min. 0.0 min. 61 - 70% 0.0 min. 0.0 min. 0.0 min. 0.0 min. 71 - 80% 0.0 min. 0.0 min. 0.0 min. 0.0 min. 81 - 90% 166.8 min. 44.6 min. 116.2 min. 6.1 min. 91 - 100% 255.7 min. 0.4 min. 146.7 min. 108.6 min. Average 91 89 91 93 Minimum SpO2 84 85 85 84 Desaturation Event Index 9.9 1.3 14.1 4.0 # Desat. Events below 89% 46 1 44 1 Time(%) with Saturation below 89% 10.6 3.6 6.8 0.2 Time(min.) with Saturation below 89% 44.8 15.3 28.6 0.9 Time (mins) REM (mins) NREM (mins) % of TST SpO2 Below 90% 57 1 N56 34.4 SpO2 Below 88% 15 0 0 3 Heart Rate Analysis Min (bpm) Max (bpm) Average (bpm) Awake 40 55 45 NREM 40 54 44 REM 40 45 41 Overall 40 54 44 Supplemental O2 Values Minimum O2 level: None Value Start Time End Time Textile Scrap Salvager Comments Mrs. Colin slept in the right, left and supine positions. PVC's noted. Leg movements noted. No bruxism noted. CPAP was initiated at +4 CMH2O and up-titrated to a level of +11 CMH2O, which nearly eliminated all respiratory events and snoring. A [employer] Simplus size small full face mask was used during titration Mrs. Colin awoke to use the restroom 1 time during the night. Mrs. Colin stated I did not sleep as well as I do when I am in my own bed. Started supplemental oxygen at 1l/min around 2:35 am. The final report will be interpreted and signed by a sleep physician. The completed physician report will then be placed in the patient medical record. Therapy Event: Therapy (cm H20) 4 5 6 7 8 9 10 11 Total Time at Pressure (min.) 38.4 11.9 39.0 11.3 12.1 242.2 30.8 43.8 TST at Pressure (min.) 22.9 11.9 39.0 10.3 10.6 152.2 27.3 33.8 # Periods 1 1 1 1 1 1 1 1 Sleep Onset (min.) 13.5 0.0 0.0 0.0 0.0 0.0 0.0 0.0 REM Onset (min.) N/A N/A N/A N/A N/A 9.8 N/A N/A Sleep Efficiency % 59 100 100 91 87 62 88 77 Wakefulness (%) 40.3 0.0 0.0 8.9 12.4 37.2 11.4 22.8 Wakefulness (min.) 15.5 0.0 0.0 1.0 1.5 90.0 3.5 10.0 NREM 1 (%) 7.8 20.9 0.0 13.3 12.4 3.5 6.5 3.4 NREM 1 (min.) 3.0 2.5 0.0 1.5 1.5 8.5 2.0 1.5 NREM 2 (%) 51.9 79.1 21.8 77.8 75.2 21.1 82.1 73.7 NREM 2 (min.) 19.9 9.4 8.5 8.8 9.1 51.2 25.3 32.3 NREM 3 (%) 0.0 0.0 78.2 0.0 0.0 19.6 0.0 0.0 NREM 3 (min.) 0.0 0.0 30.5 0.0 0.0 47.5 0.0 0.0 REM (%) 0.0 0.0 0.0 0.0 0.0 18.6 0.0 0.0 REM (min.) 0.0 0.0 0.0 0.0 0.0 45.0 0.0 0.0 # Arousals 4 9 1 11 8 17 9 3 Arousal Index 10.5 45.2 1.5 64.3 45.2 6.7 19.8 5.3 # Snore 0 8 167 0 1 11 2 0 Snore Index 0.0 40.2 257.0 0.0 5.7 4.3 4.4 0.0 AHI 7.9 30.2 6.2 76.0 62.2 5.5 15.4 0.0 AHI Supine N/A N/A N/A 83.9 62.2 7.0 N/A N/A AHI Non-Supine 7.9 30.2 6.2 62.8 N/A 4.3 15.4 0.0 NREM AHI 7.9 30.2 6.2 76.0 62.2 7.3 15.4 0.0 REM AHI N/A N/A N/A N/A N/A 1.3 N/A N/A RDI 7.9 30.2 6.2 76.0 62.2 5.5 15.4 0.0 # Obstructive 0 0 0 1 0 0 0 0 # Central Ap 0 0 1 6 3 2 0 0 # Mixed 0 0 0 0 0 0 0 0 # Hypopneas 3 6 3 6 8 12 7 0 RERAS 0 0 0 0 0 0 0 0 Total Respiratory Events 3 6 4 13 11 14 7 0 Time Below SpO2 89.00% (min.) 7.7 4.4 5.9 2.4 2.6 20.6 0.2 0.0 Mean NREM SpO2 (%) 89 89 89 90 90 91 92 93 Mean REM SpO2 (%) N/A N/A N/A N/A N/A 89 N/A N/A Mean Sleep SpO2 (%) 89 89 89 90 90 90 92 93 Min NREM SpO2 (%) 87 85 88 86 86 86 88 90 Min REM SpO2 (%) N/A N/A N/A N/A N/A 85 N/A N/A Position Supine (min.) 0.0 0.0 0.0 6.4 10.6 68.3 0.0 0.0 Position Non-supine (min.) 22.9 11.9 39.0 3.8 0.0 83.9 27.3 33.8 LM Index Sleep 57.6 110.6 72.3 70.2 39.6 5.1 0.0 0.0 LM Index NREM 57.6 110.6 72.3 70.2 39.6 6.7 0.0 0.0 LM Index REM N/A N/A N/A N/A N/A 1.3 N/A N/A Mean Heart Rate (bpm) 46 47 48 46 44 43 42 42 Min Heart Rate (bpm) 44 45 45 43 42 40 40 40
--- NOTE | 2017-07-13 15:02 | POLYSOMNOGRAPH REPORT ---
CLINICAL DATA: A 61-year-old female with BMI of 33.6 referred by myself and Lisa Turcios for a CPAP titration study. She has atrial fibrillation and nocturnal hypoxemia. She had a sleep study in June 2017, which showed moderate BETHEL with an AHI of 22.1. She has returned for a CPAP titration study. SLEEP ARCHITECTURE: Total sleep period was 416 minutes. Total sleep time was 308 minutes divided between 263 minutes of non-REM sleep and 45 minutes of REM sleep. Sleep onset latency was 13.5 minutes. REM latency was 109 minutes. Sleep efficiency was 73%. Wake after sleep onset was 108 minutes. Sleep consisted of stage N1 7%, stage N1 53%, stage N3 25%, and REM 15%. AROUSAL DATA: Sixty-two arousals recorded for an index of 12 per hour. PLM DATA: Fff-[id number]-hwhtbf-three limb movements during sleep were noted for an index of 24 per hour with arousal index of 3.3 per hour. RESPIRATORY DATA: The AHI was 11.3. There were 12 central apneic episodes and 1 obstructive apneic episode. The longest duration of apnea was 20.4 seconds. There were 45 hypopneic episodes with the mean duration of 14.7 seconds. OXIMETRY DATA: Oxygen jet was 85%. Mean saturation was 91%. Time below 88% was 15 minutes. EKG: Heart rates ranged from 40-54 beats per minute. PVCs were noted. 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 She used a [employer] Simplus size small full facemask. She was started at 4 cm of water pressure and was titrated up to 11 cm water pressure. At 11 cm of water pressure, she slept for 33.8 minutes with an AHI of 0. At 2:35 a.m. while she was still on 9 cm of water pressure with an AHI of 5.5, oxygen 1 liter per minute was added to improve her nocturnal oxygenation. IMPRESSION: Moderate sleep apnea/hypopnea corrected with CPAP 11 cm water pressure using a [employer] Simplus small full facemask with residual AHI of 0. The patient did have some persistent oxygen desaturation requiring 1 liter per minute prior to her final CPAP setting. RECOMMENDATIONS: The patient was seen back in the office and a discussion will be held concerning institution of CPAP 11 cm of water pressure. After CPAP has been used overnight, nocturnal oxygen saturation could be determined to see if oxygen is needed long-term. MTDD
== END | disposition home or self-care (01) ==
LOC: C.NEUR 20:00
PROVIDERS: ATTEND Physician Assistant Medical
DX: I48.91 Unspecified atrial fibrillation (principal); G47.34 Idiopathic sleep related nonobstructive alveolar hypoventilation; N39.3 Stress incontinence (female) (male); G47.33 Obstructive sleep apnea (adult) (pediatric)

== ENCOUNTER → 2017-10-25 | Outpatient (CLI) | payer OTHER ==
--- NOTE | 2017-10-25 15:19 | MAMMOGRAPHY REPORT ---
BILATERAL DIGITAL DIAGNOSTIC MAMMOGRAM TOMOSYNTHESIS WITH CAD: 10/25/2017 CLINICAL HISTORY: 12 month follow-up of left breast calcifications. Due for routine mammography of t he right breast. The patient has no new lumps or other complaints. TECHNIQUE: Breast tomosynthesis in addition to standard 2D mammography was performed. Current study was also evaluated with a Computer Aided Detection (CAD) system. Bilateral CC and MLO 2-D and tomosy nthesis images and spot magnification left CC and ML views were obtained. COMPARISON: Comparison is made to exams dated: 03/17/2016 mammogram, 11/02/2014 mammogram, 11/02/2014 emery reotactic biopsy, and 04/02/2014 mammogram - [facility]. BREAST COMPOSITION: The tissue of both breasts is heterogeneously dense, which may obscure small mas ses. FINDINGS: Again noted is a small 4 mm cluster of calcifications within the left 12:00 breast; the farhan cifications are stable on spot magnification views dating back to August 2015. The calcifications a lso appear similar to previously biopsied calcifications in the right breast which yielded a benign f ibroadenomatoid changes. 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 The reader of both breasts are stable compared to prior exams, without suspicious masses, calcifications, or areas of architectural distortion note d. Other bilateral benign-appearing calcifications are not significantly changed. A biopsy marker c lip is again noted within the right upper outer quadrant from prior benign stereotactic biopsy. Nodu lar asymmetry within the left superior breast middle depth on the MLO view is stable compared to prio r exams including the 2011 exam. 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 There is no mammographic silvestre dence of malignancy in either breast. A 1 year screening mammogram is recommended. The patient has b een verbally notified of the results. Approximately 10% of breast cancers are not detected with mammography. A negative mammographic report should not delay biopsy if a clinically suggestive mass is present. Kathe Copeland M.D. ah/:10/25/2017 10:50:13 Sales Donor Recruitment Representative: Marychuy Ni RT(R)(M), [facility] letter sent: Normal 1/2 BI-RADS Code: ACR BI-RADS Category 2: Benign
== END | disposition home or self-care (01) ==
LOC: C.MAMM 10:23
PROVIDERS: ATTEND Internal Medicine
DX: R92.0 Mammographic microcalcification found on diagnostic imaging of breast (principal)

== ENCOUNTER → 2017-11-02 | Outpatient (CLI) | payer OTHER ==
[2017-11-02 12:21] LABS: BASO % 0.6 %; BASO ABS # 0.04 K/uL (0-0.2); EOS % 3.9 %; EOS ABS # 0.26 K/uL (0-0.5); HEMATOCRIT 41.4 % (37-47); HEMOGLOBIN 13.8 g/dL (12.0-16.0); IG# 0.03 K/uL (0.00-0.02); LYMPH ABS # 1.79 K/uL (1.2-3.4); MEAN CELL VOLUME 86.8 fL (80-100); MEAN CORPUSCULAR HEMOGLOBIN 28.9 pg (25-34); MEAN CORPUSCULAR HGB CONC 33.3 g/dl (32-36); MEAN PLATELET VOLUME 11.6 fL (7.4-10.4); MONO % 8.8 %; MONO ABS # 0.58 K/uL (0.11-0.59); NEUT % 59.2 %; NEUT ABS # 3.92 K/uL (1.4-6.5); PLATELET COUNT 276 K/uL (130-400); RED CELL DISTRIBUTION WIDTH CV 13.8 % (11.5-14.5); RED CELL DISTRIBUTION WIDTH SD 43.7 fL (36.4-46.3); WHITE BLOOD COUNT 6.62 K/uL (4.8-10.8)
[2017-11-02 12:30] LABS: ALBUMIN 3.6 gm/dl (3.4-5.0); ALKALINE PHOSPHATASE 59 U/L (45-117); ALT/SGPT 79 U/L (12-78); AST/SGOT 40 U/L (15-37); BLOOD UREA NITROGEN 23 mg/dl (7-18); CALCIUM 9.5 mg/dl (8.5-10.1); CARBON DIOXIDE 28 mmol/L (21-32); CHOLESTEROL 183 mg/dl (0-200); CREATININE 0.99 mg/dl (0.60-1.20); GLUCOSE 139 mg/dl (70-99); LDL CHOLESTEROL CALCULATED 116 mg/dl; POTASSIUM 3.3 mmol/L (3.5-5.1); SODIUM 136 mmol/L (136-145); TOTAL PROTEIN 6.9 gm/dl (6.4-8.2)
[2017-11-02 12:43] LABS: HEMOGLOBIN A1C 7.6 % (4.5-5.6)
== END | disposition home or self-care (01) ==
LOC: C.LABBFT 08:54
PROVIDERS: ATTEND Internal Medicine Cardiovascular Disease
DX: I10 Essential (primary) hypertension (principal); N39.0 Urinary tract infection, site not specified; R79.9 Abnormal finding of blood chemistry, unspecified; E78.5 Hyperlipidemia, unspecified; R00.2 Palpitations; I48.91 Unspecified atrial fibrillation; Z00.00 Encounter for general adult medical examination without abnormal findings

== ENCOUNTER → 2017-11-19 | Outpatient (CLI) | payer OTHER ==
[2017-11-19 16:34] LABS: HEMATOCRIT 43.3 % (37-47); HEMOGLOBIN 14.4 g/dL (12.0-16.0); MEAN CELL VOLUME 86.6 fL (80-100); MEAN CORPUSCULAR HEMOGLOBIN 28.8 pg (25-34); MEAN CORPUSCULAR HGB CONC 33.3 g/dl (32-36); PLATELET COUNT 338 K/uL (130-400); RED CELL DISTRIBUTION WIDTH CV 13.8 % (11.5-14.5); RED CELL DISTRIBUTION WIDTH SD 43.5 fL (36.4-46.3); WHITE BLOOD COUNT 8.26 K/uL (4.8-10.8)
[2017-11-19 16:52] LABS: ALBUMIN 3.7 gm/dl (3.4-5.0); ALT/SGPT 56 U/L (12-78); AST/SGOT 29 U/L (15-37); BLOOD UREA NITROGEN 29 mg/dl (7-18); CALCIUM 9.8 mg/dl (8.5-10.1); CARBON DIOXIDE 27 mmol/L (21-32); CREATININE 1.25 mg/dl (0.60-1.20); GLUCOSE 132 mg/dl (70-99); POTASSIUM 3.1 mmol/L (3.5-5.1); SODIUM 138 mmol/L (136-145)
[2017-11-19 16:54] LABS: ALKALINE PHOSPHATASE 65 U/L (45-117); TOTAL PROTEIN 7.2 gm/dl (6.4-8.2)
== END | disposition home or self-care (01) ==
LOC: C.LABBFT 11:29
PROVIDERS: ATTEND Physician Assistant Medical
DX: I10 Essential (primary) hypertension (principal); E78.5 Hyperlipidemia, unspecified; R00.2 Palpitations; I48.91 Unspecified atrial fibrillation; Z00.00 Encounter for general adult medical examination without abnormal findings; E87.6 Hypokalemia

== ENCOUNTER → 2017-12-03 | Outpatient (CLI) | payer OTHER ==
[2017-12-03 16:51] LABS: BLOOD UREA NITROGEN 21 mg/dl (7-18); CALCIUM 10.2 mg/dl (8.5-10.1); CARBON DIOXIDE 27 mmol/L (21-32); CREATININE 0.96 mg/dl (0.60-1.20); GLUCOSE 113 mg/dl (70-99); POTASSIUM 3.3 mmol/L (3.5-5.1); SODIUM 137 mmol/L (136-145)
[2017-12-03 17:13] LABS: ALT/SGPT 41 U/L (12-78); AST/SGOT 21 U/L (15-37)
== END | disposition home or self-care (01) ==
LOC: C.LABBFT 11:32
PROVIDERS: ATTEND Internal Medicine
DX: Z00.00 Encounter for general adult medical examination without abnormal findings (principal); E78.5 Hyperlipidemia, unspecified; I48.91 Unspecified atrial fibrillation; R00.2 Palpitations; I10 Essential (primary) hypertension; E87.6 Hypokalemia

== ENCOUNTER → 2017-12-12 | Outpatient (CLI) | payer OTHER ==
[2017-12-12 16:46] LABS: BLOOD UREA NITROGEN 25 mg/dl (7-18); CALCIUM 9.8 mg/dl (8.5-10.1); CARBON DIOXIDE 26 mmol/L (21-32); CREATININE 1.05 mg/dl (0.60-1.20); GLUCOSE 117 mg/dl (70-99); POTASSIUM 3.8 mmol/L (3.5-5.1); SODIUM 135 mmol/L (136-145)
== END | disposition home or self-care (01) ==
LOC: C.LABBFT 11:41
PROVIDERS: ATTEND Physician Assistant Medical
DX: E11.9 Type 2 diabetes mellitus without complications (principal); I10 Essential (primary) hypertension; E87.6 Hypokalemia